=== PATIENT | male | born 1965 | race Caucasian/White ===

== ENCOUNTER 2017-10-23 13:54 | Emergency (ER) | payer OTHER ==
[~2017-10-23] VITALS: Ht 182.9 cm; Wt 108.9 kg
[~2017-10-23 13:54] MED LIST: DESO.05TL TP; DOCU100 PO; Ddavp0.1 MG PO; FAMO20 PO; FENO160; FLAX PO; HYDMETSO; HYDR1TAB94 PO; PRAHYD1AE TOP; Tylenol325 MG PO; VENL75ER PO; WARF2; WARF3; [UNRECOGNIZED DRUG - CODE]
[2017-10-23] MEDS ORDERED: LIOT25 PO (15:12)
[2017-10-23] MEDS ORDERED: CHOL10002 PO (15:14)
[2017-10-23] MEDS ORDERED: LORA1 PO (15:14)
[2017-10-23] MEDS ORDERED: XARELTO20 MG PO (15:16)
[2017-10-23] MEDS ORDERED: ULTRA-LIGHT RO1 EACH MC (16:56)
[2017-10-23] MEDS ORDERED: Percocet 5-3251 EACH PO (16:57)
== END 2017-10-23 17:04 | disposition home or self-care (01) ==
LOC: ER 13:54
DX: S70.01XA Contusion of right hip, initial encounter (principal); M54.5 Low back pain; K21.9 Gastro-esophageal reflux disease without esophagitis; F32.9 Major depressive disorder, single episode, unspecified; W18.2XXA Fall in (into) shower or empty bathtub, initial encounter; Z88.8 Allergy status to other drugs, medicaments and biological substances; Z79.899 Other long term (current) drug therapy
CPT/HCPCS: 72070; 72100; 73502; 99283

== ENCOUNTER 2017-10-27 06:08 | Emergency (ER) | payer OTHER ==
[~2017-10-27] VITALS: Ht 182.9 cm; Wt 108.9 kg
[~2017-10-27 06:08] MED LIST changes: +CHOL10002 PO; +LIOT25 PO; +LORA1 PO; +Percocet 5-3251 EACH PO; +ULTRA-LIGHT RO1 EACH MC; +XARELTO20 MG PO
== END 2017-10-27 09:00 | disposition home or self-care (01) ==
LOC: ER 06:08
DX: S50.02XA Contusion of left elbow, initial encounter (principal); W06.XXXA Fall from bed, initial encounter; Z88.8 Allergy status to other drugs, medicaments and biological substances; Z79.899 Other long term (current) drug therapy
CPT/HCPCS: 73080; 73100; 99283

== ENCOUNTER 2018-07-17 15:48 | Observation (INO) | payer OTHER ==
[~2018-07-17] VITALS: Ht 180.3 cm; Wt 107.6 kg
[2018-07-17] MEDS ORDERED: Prozac20 MG (16:15)
[2018-07-17 16:24] LABS: BASOPHILS ABSOLUTE AUTO 0.03 K/mm3 (0.00-0.23); BASOPHILS PERCENT AUTO 0 % (0-2); EOSINOPHILS ABSOLUTE AUTO 0.29 K/mm3 (0.00-0.68); EOSINOPHILS PERCENT AUTO 3 % (0-6); Hematocrit 52.8 % (37.0-53.0); Hemoglobin 16.1 g/dL (13.5-17.5); IMMATURE GRAN ABSOLUTE AUTO 0.02 K/mm3 (0.00-0.10); IMMATURE GRAN PERCENT AUTO 0 % (0-1); LYMPHOCYTES PERCENT AUTO 37 % (21-46); MONOCYTES ABSOLUTE AUTO 0.86 K/mm3 (0.16-1.47); MONOCYTES PERCENT AUTO 10 % (4-13); Mean Corpuscular HGB Conc 30.5 g/dL (31.5-36.5); Mean Corpuscular Volume 95 fL (80-100); NEUTROPHILS ABSOLUTE AUTO 4.27 K/mm3 (1.96-9.15); NEUTROPHILS PERCENT AUTO 49 % (41-73); Platelet Count 179 K/mm3 (150-400); RDW Coefficient Variation 15.7 % (11.7-14.2); RDW Standard Deviation 55.4 fL (35.1-46.3); Red Blood Cell Count 5.55 M/mm3 (4.30-5.90); White Blood Cell Count 8.67 K/mm3 (4.00-11.30)
[2018-07-17 16:46] LABS: Alanine Aminotransfer (ALT/SGP 41 U/L (12-78); Albumin, Blood 3.4 g/dL (3.4-5.0); Albumin/Globulin Ratio 0.7 (0.8-1.8); Alk Phos 93 U/L (50-136); Anion Gap 7 mmol/L (6-16); Aspartate Aminotrans (AST/SGOT 27 U/L (12-37); Bilirubin, Total 0.1 mg/dL (0.1-1.0); Blood Urea Nitrogen 23 mg/dL (8-24); Bun/Creatinine Ratio 23.5 (12.0-20.0); CO2, Blood 27 mmol/L (21-32); Calcium, Blood 9.4 mg/dL (8.5-10.1); Chloride, Blood 117 mmol/L (98-108); Creatinine, Blood 0.98 mg/dL (0.60-1.20); Globulin, Blood 4.8 g/dL (2.2-4.0); Glomerular Filtration Rate >60 (60-); Glucose, Blood 114 mg/dL (70-99); Sodium, Blood 151 mmol/L (136-145); Total Protein, Blood 8.2 g/dL (6.4-8.2)
[2018-07-17 16:58] LABS: International Normalized Ratio 1.09; Prothrombin Time Results 11.2 Sec (9.7-11.5)
[2018-07-17 20:50] LABS: Anion Gap 5 mmol/L (6-16); Blood Urea Nitrogen 24 mg/dL (8-24); Bun/Creatinine Ratio 27.9 (12.0-20.0); CO2, Blood 30 mmol/L (21-32); Calcium, Blood 9.1 mg/dL (8.5-10.1); Chloride, Blood 116 mmol/L (98-108); Creatinine, Blood 0.86 mg/dL (0.60-1.20); Glomerular Filtration Rate >60 (60-); Glucose, Blood 100 mg/dL (70-99); Sodium, Blood 151 mmol/L (136-145)
[2018-07-18 06:36] LABS: Anion Gap 9 mmol/L (6-16); Blood Urea Nitrogen 21 mg/dL (8-24); Bun/Creatinine Ratio 25.2 (12.0-20.0); CO2, Blood 27 mmol/L (21-32); Calcium, Blood 8.5 mg/dL (8.5-10.1); Chloride, Blood 116 mmol/L (98-108); Creatinine, Blood 0.83 mg/dL (0.60-1.20); Glomerular Filtration Rate >60 (60-); Glucose, Blood 70 mg/dL (70-99); Potassium, Blood 4.5 mmol/L (3.5-5.5); Sodium, Blood 152 mmol/L (136-145)
[2018-07-18] MEDS ORDERED: Acetaminophen325 M1 PO (13:35)
== END 2018-07-18 14:33 | disposition home or self-care (01) ==
LOC: ER 15:48 → MEDS 15:49
PROVIDERS: Emergency Medicine; Internal Medicine
DX: R55 Syncope and collapse (principal); E23.2 Diabetes insipidus; E78.5 Hyperlipidemia, unspecified; Z87.820 Personal history of traumatic brain injury; Z87.891 Personal history of nicotine dependence; Z88.8 Allergy status to other drugs, medicaments and biological substances; Z79.899 Other long term (current) drug therapy
CPT/HCPCS: 36415; 70450; 80048; 80053; 85025; 85610; 87081; G0378; J7030; J7120

== ENCOUNTER 2019-01-14 07:48 | Inpatient (IN) | payer OTHER ==
[~2019-01-14] VITALS: Ht 177.8 cm; Wt 124.7 kg
[~2019-01-14 07:48] MED LIST changes: +Acetaminophen325 M1 PO; -FLAX PO; +Flax Oil1000 MG PO; +LORA.5 PO; -LORA1 PO; +Prozac20 MG PO
[2019-01-14] MEDS ORDERED: Omega 3 1,0001 EACH PO (08:19)
[2019-01-14] MEDS ORDERED: ATOR40TA PO (08:20)
[2019-01-14 10:38] LABS: BASOPHILS ABSOLUTE AUTO 0.02 K/mm3 (0.00-0.23); BASOPHILS PERCENT AUTO 0 % (0-2); EOSINOPHILS ABSOLUTE AUTO 0.04 K/mm3 (0.00-0.68); EOSINOPHILS PERCENT AUTO 0 % (0-6); Hematocrit 45.3 % (37.0-53.0); Hemoglobin 14.8 g/dL (13.5-17.5); IMMATURE GRAN ABSOLUTE AUTO 0.06 K/mm3 (0.00-0.10); IMMATURE GRAN PERCENT AUTO 1 % (0-1); LYMPHOCYTES ABSOLUTE AUTO 0.87 K/mm3 (0.84-5.20); LYMPHOCYTES PERCENT AUTO 9 % (21-46); MONOCYTES PERCENT AUTO 8 % (4-13); Mean Corpuscular HGB 28.8 pg (26.0-34.0); Mean Corpuscular HGB Conc 32.7 g/dL (31.5-36.5); Mean Corpuscular Volume 88 fL (80-100); Mean Platelet Volume 10.5 fL (9.1-12.4); NEUTROPHILS ABSOLUTE AUTO 7.79 K/mm3 (1.96-9.15); NEUTROPHILS PERCENT AUTO 81 % (41-73); Platelet Count 144 K/mm3 (150-400); RDW Coefficient Variation 14.6 % (11.7-14.2); RDW Standard Deviation 46.4 fL (35.1-46.3); Red Blood Cell Count 5.13 M/mm3 (4.30-5.90); White Blood Cell Count 9.58 K/mm3 (4.00-11.30)
[2019-01-14 10:56] LABS: International Normalized Ratio 1.19; Prothrombin Time Results 12.4 Sec (9.7-11.5)
[2019-01-14 11:03] LABS: Alanine Aminotransfer (ALT/SGP 72 U/L (12-78); Albumin, Blood 3.5 g/dL (3.4-5.0); Albumin/Globulin Ratio 0.9 (0.8-1.8); Alk Phos 101 U/L (50-136); Anion Gap 6 mmol/L (6-16); Aspartate Aminotrans (AST/SGOT 54 U/L (12-37); Bilirubin, Total 0.5 mg/dL (0.1-1.0); Blood Urea Nitrogen 13 mg/dL (8-24); CO2, Blood 26 mmol/L (21-32); Calcium, Blood 8.7 mg/dL (8.5-10.1); Chloride, Blood 100 mmol/L (98-108); Creatinine, Blood 0.65 mg/dL (0.60-1.20); Globulin, Blood 4.1 g/dL (2.2-4.0); Glomerular Filtration Rate >60 (60-); Glucose, Blood 98 mg/dL (70-99); Potassium, Blood 4.7 mmol/L (3.5-5.5); Sodium, Blood 132 mmol/L (136-145); Total Protein, Blood 7.6 g/dL (6.4-8.2)
--- NOTE | 2019-01-14 12:40 | NUR ---
PT TO ROOM 208 VIA GURNEY FROM ER.
--- NOTE | 2019-01-14 13:15 | NUR ---
DR CASTRO AWARE OF NEW PT ADMIT. ORDERS FOR FENTANYL RECEIVED.
--- NOTE | 2019-01-14 13:53 | NUR ---
PT MEDICATED WITH 25MCG FENTANYL IV FOR PAIN. PT RESTING IN POSITION OF COMFORT. PT HAS OCCASIONAL SPASM. MULT FAMILY AT BEDSIDE.
--- NOTE | 2019-01-14 14:45 | NUR ---
DR CASTRO TO ROOM FOR EVAL AND ADMIT ORDERS.
[2019-01-14] MEDS ORDERED: Desmopressin A0.1 MG PO (15:19)
[2019-01-14] MEDS ORDERED: LORA1 PO (15:21)
--- NOTE | 2019-01-14 19:14 | NUR ---
PT MEDICATED WITH 2 NORCO PO. PT ATE 100% DINNER.
--- NOTE | 2019-01-15 04:33 | NUR ---
PT VSS T/O NIGHT. PAIN MGD W/2 NORCO W/REP RELIEF. PT SLOW TO RESPOND PER BASLINE, IS ABLE TO MAKE NEEDS KNOWN. PT SWALLOWS MEDS W/O DIFFICULTY. SISTER PRESENT IN ROOM T/O NIGHT, ASSISTING W/NEEDS. PLAN FOR SURGERY FRIDAY. CALL LIGHT IN REACH, BED ALARM ON FOR SAFETY. WILL CONT TO MONITOR UNTIL REP GIVEN TO ONCOMING RN.
[2019-01-15 04:42] LABS: BASOPHILS ABSOLUTE AUTO 0.02 K/mm3 (0.00-0.23); BASOPHILS PERCENT AUTO 0 % (0-2); EOSINOPHILS ABSOLUTE AUTO 0.14 K/mm3 (0.00-0.68); EOSINOPHILS PERCENT AUTO 2 % (0-6); Hemoglobin 14.3 g/dL (13.5-17.5); IMMATURE GRAN ABSOLUTE AUTO 0.02 K/mm3 (0.00-0.10); IMMATURE GRAN PERCENT AUTO 0 % (0-1); LYMPHOCYTES PERCENT AUTO 19 % (21-46); MONOCYTES ABSOLUTE AUTO 0.65 K/mm3 (0.16-1.47); MONOCYTES PERCENT AUTO 10 % (4-13); Mean Corpuscular HGB 28.9 pg (26.0-34.0); Mean Corpuscular HGB Conc 31.8 g/dL (31.5-36.5); Mean Platelet Volume 9.8 fL (9.1-12.4); NEUTROPHILS ABSOLUTE AUTO 4.59 K/mm3 (1.96-9.15); NEUTROPHILS PERCENT AUTO 68 % (41-73); Platelet Count 115 K/mm3 (150-400); RDW Coefficient Variation 14.6 % (11.7-14.2); RDW Standard Deviation 49.1 fL (35.1-46.3); Red Blood Cell Count 4.95 M/mm3 (4.30-5.90); White Blood Cell Count 6.72 K/mm3 (4.00-11.30)
[2019-01-15 04:48] LABS: Mean Corpuscular Volume 91 fL (80-100)
[2019-01-15 05:01] LABS: Anion Gap 6 mmol/L (6-16); Blood Urea Nitrogen 13 mg/dL (8-24); Bun/Creatinine Ratio 19.2 (12.0-20.0); CO2, Blood 26 mmol/L (21-32); Calcium, Blood 8.7 mg/dL (8.5-10.1); Chloride, Blood 99 mmol/L (98-108); Creatinine, Blood 0.68 mg/dL (0.60-1.20); Glomerular Filtration Rate >60 (60-); Glucose, Blood 94 mg/dL (70-99); Potassium, Blood 4.1 mmol/L (3.5-5.5); Sodium, Blood 131 mmol/L (136-145)
--- NOTE | 2019-01-16 08:01 | NUR ---
SHIFT SUMMARY PT ALERT, ORIENTED TO SELF AND PATTERN TECHNICIAN T/O SHIFT. PAIN MANAGED PER EMAR. EXT COOL X4. ATTENDS CHANGED PRN; PT INCONT. 2-3 ASSIST FOR TURNS. 2L O2 VIA NC; CONT. OX IN PLACE. IV GTT PER EMAR. PT NPO POST MIDNIGHT. PT OCC AGGITATED, ORIENTED BY PATTERN TECHNICIAN, PT CALMED READILY. SCD'S TO BLE'S, PT DID NOT TOLERATE ON LLE. PATTERN TECHNICIAN AT BEDSIDE; SIDE RAILS X3 AND BED ALARM FOR SAFETY. REPORT GIVEN TO DAY SHIFT RN.
--- NOTE | 2019-01-16 08:15 | NUR ---
PT TO DAY SURG VIA BED WITH POSTMASTER AND BRIDGE INSTRUCTOR RADHA. PT'S POA (MOTHER AND FATHER) SPEAKING WITH IN [place] FOR SURGICAL CONSENT.
--- NOTE | 2019-01-16 12:22 | NUR ---
DID NOT MOVE FEET WHEN ASKED BUT DID HAVE RESPONSE OF MOVEMENT WHEN RAN MY FINGER UP SOLE OF FOOT.
--- NOTE | 2019-01-16 16:09 | NUR ---
SHIFT SUMMARY: POD#0 BULKY DRESSING TO L HIP. DRESSING IS C/D/I. PT IS ABLE TO FOLLOW BASIC INSTRUCTIONS. TOLERATING PO INTAKE. DENIES ANY PAIN POST OP. HE IS HAVING VISUAL HALLUCINATIONS, PHYSICAL THERAPY WILL WORK WITH PT TOMORROW INSTEAD OF THIS AFTERNOON PER CARE PROVIDER REQUEST. HIS IS ON 4L O2 VIA NC TO MAINTAIN SATS >90% WILL WEAN APPROP. CONT PULSE OX IN PLACE. DENIES SOB. BILAT SCD'S IN PLACE. ICE PACK TO L HIP. OCASIO IS PATENT AND DRAINING. WILL CTM UNTIL REPORT GIVEN TO NEXT SHIFT RN.
[2019-01-17 06:01] LABS: BASOPHILS PERCENT AUTO 0 % (0-2); EOSINOPHILS ABSOLUTE AUTO 0.01 K/mm3 (0.00-0.68); EOSINOPHILS PERCENT AUTO 0 % (0-6); Hematocrit 37.8 % (37.0-53.0); Hemoglobin 12.1 g/dL (13.5-17.5); IMMATURE GRAN ABSOLUTE AUTO 0.05 K/mm3 (0.00-0.10); IMMATURE GRAN PERCENT AUTO 1 % (0-1); LYMPHOCYTES ABSOLUTE AUTO 1.06 K/mm3 (0.84-5.20); LYMPHOCYTES PERCENT AUTO 10 % (21-46); MONOCYTES PERCENT AUTO 12 % (4-13); Mean Corpuscular HGB 29.3 pg (26.0-34.0); Mean Corpuscular Volume 92 fL (80-100); Mean Platelet Volume 10.1 fL (9.1-12.4); NEUTROPHILS ABSOLUTE AUTO 7.97 K/mm3 (1.96-9.15); NEUTROPHILS PERCENT AUTO 77 % (41-73); Platelet Count 130 K/mm3 (150-400); RDW Coefficient Variation 14.9 % (11.7-14.2); RDW Standard Deviation 50.3 fL (35.1-46.3); Red Blood Cell Count 4.13 M/mm3 (4.30-5.90); White Blood Cell Count 10.29 K/mm3 (4.00-11.30)
[2019-01-17 06:17] LABS: Anion Gap 3 mmol/L (6-16); Blood Urea Nitrogen 13 mg/dL (8-24); Bun/Creatinine Ratio 19.3 (12.0-20.0); CO2, Blood 32 mmol/L (21-32); Calcium, Blood 8.7 mg/dL (8.5-10.1); Chloride, Blood 95 mmol/L (98-108); Creatinine, Blood 0.68 mg/dL (0.60-1.20); Glomerular Filtration Rate >60 (60-); Glucose, Blood 115 mg/dL (70-99); Magnesium, Blood 1.7 mg/dL (1.6-2.4); Potassium, Blood 4.7 mmol/L (3.5-5.5); Sodium, Blood 130 mmol/L (136-145)
--- NOTE | 2019-01-17 07:58 | NUR ---
SHIFT SUMMARY PT ALERT, ORIENTED TO SELF AND ROAD GANG SUPERVISOR; USUALLY FOLLOWS SIMPLE DIRECTIONS. PT AGGRIVATION NOTED WITH MUCH STIMULATION. POD#1 L HIP ALANA-ARTHROPLASTY; DRESSING CDI; EXT PWD; PAIN MANAGED PER EMAR. WEANED TO 2L O2 VIA NC; CONT. OXIMITRY IN PLACE. CATHETER PATENT, STAT-LOCK IN PLACE. PT DOES NOT TURN WELL; 3 MAX ASSIST. SCD'S TO BLE'S. ROAD GANG SUPERVISOR AT BEDSIDE. REPORT GIVEN TO DAY SHIFT RN.
--- NOTE | 2019-01-17 19:27 | NUR ---
SHIFT SUMMARY: PT BEEN UP IN CHAIR MOST OF DAY AFTER WORKING WITH THERAPY THIS MORNING. PT/CAREGIVER BEEN ASSISTED WITH ADL'S PRN. PT BEEN MED FOR PAIN. PT HAS OCASIO IN PLACE. PT BEEN BACK TO BED RECENTLY WITH MULT ASSIST. CAREGIVER IN ROOM. FAMILY IN TO SEE PT TODAY. PT DRESSING TO L HIP CONT TO BE C/D/I. PAS IN PLACE.
--- NOTE | 2019-01-18 07:31 | NUR ---
SHIFT SUMMARY PT A&O TO SELF AND CAREGIVER. SLOW RESPONSE, ABLE TO RESPOND TO SIMPLE QUESTIONS. POD#2 L HIP ALANA-ARTHROPLASTY. PT BED MOBILITY INCREASED FROM PRIOR TILE GRINDER. ICE TO L HIP PRN. PAIN MANAGED PER EMAR. HOB ELEVATED AND PILLS WITH APPLESAUCE. RA; DENIES SOB; VSS. APPROX. 0430 PT PULLED OCASIO CATHETER, BALLOON INTACT; NO TRAUMA/ACTIVE BLEEDING NOTED TO PENIS. PT VOIDED REPEATLY DURING BEDCHANGE/SPONGE BATH. CONDOM CATHETER APPLIED TO PROTECT PT SKIN AND SURGICAL INCISION. PT DRESSING TO L HIP SATURATED WITH URINE; CIRCUIT COURT JUDGE, EVERT, REMOVED DRESSING CLEANED SITE AND APPLIED AQUCEL DRESSING. DRESSING CDI AT SHIFT CHANGE. PT TOLERATING REPOSITIONING/LINEN CHANGE BETTER THAN PRIOR NIGHT. SCD'S TO BLE'S. BOWEL CARE PER EMAR. BED ALARM AND SIDE RAILS X3 FOR SAFETY. CAREGIVER AT BEDSIDE. REPORT GIVEN TO DAY SHIFT RN.
[2019-01-18 08:24] LABS: Anion Gap 5 mmol/L (6-16); Blood Urea Nitrogen 17 mg/dL (8-24); Bun/Creatinine Ratio 23.2 (12.0-20.0); CO2, Blood 31 mmol/L (21-32); Calcium, Blood 9.8 mg/dL (8.5-10.1); Chloride, Blood 107 mmol/L (98-108); Creatinine, Blood 0.73 mg/dL (0.60-1.20); Glomerular Filtration Rate >60 (60-); Glucose, Blood 90 mg/dL (70-99); Potassium, Blood 4.8 mmol/L (3.5-5.5); Sodium, Blood 143 mmol/L (136-145)
--- NOTE | 2019-01-18 11:07 | NUR ---
PT CALLING OUT AND APPEARS AGGITATED AT THIS TIME. PT'S CAREGIVER REPORTS HE GETS ATIVAN TID. PT'S CAREGIVER REPORTS THAT THE PATIENT MAY BECOME VIOLENT IF AGGITATION PERSISTS. DR. LABOY WAS NOTIFIED OF AGGITATION AND PT HOME ROUTINE. PT IS CONFUSED AT THIS TIME HE WOULD NOT ANSWER QUESTIONS RELATED TO PAIN. PT DOES NOT APPEAR TO BE IN PAIN, EVEN WHEN REPOSITIONED HE DID NOT CALL OUT OR COMPLAIN OF PAIN. DR. LABOY STATED SHE WOULD REVIEW HOME DOSE, AWAITING ORDERS. WILL CONTINUE TO MONITOR.
--- NOTE | 2019-01-18 11:29 | NUR ---
DR. LABOY NOTIFIED THAT PT WAS ASSESSED FOR PAIN AND DID NOT APPEAR TO BE IN PAIN. ALSO NOTIFIED THAT PT IS BECOMING MORE AGGITATED AND AGRESSIVE.
--- NOTE | 2019-01-18 18:19 | NUR ---
SHIFT SUMMARY PAIN HAS BEEN MANAGED WITH PO PAIN MEDICATION THIS SHIFT. PT BECAME AGGITATED AROUND NOON, ATIVAN DOSE WAS INCREASED. PT FOLLOWS DIRECTIONS BUT BECOMES FRUSTRATED AND YELLS. PT IS ORIENTED TO SELF AND FOLLOWING DIRECTIONS. HE WAS ABLE TO GET OOB WITH 2 ASSIST REQUIRED CONSTANT COACHING. VSS. WILL MONITOR UNTIL REPORT TO ONCOMING RN.
--- NOTE | 2019-01-18 19:46 | NUR ---
SHIFT SUMMARY PAIN HAS BEEN MANAGED WITH PO PAIN MEDICATION THIS SHIFT. PT HAS BEEN AGGITATED ESPECIALLY WHEN WORKING WITH STAFF. HE FOLLOWS DIRECTIONS BUT BECOMES VERY FRUSTRATED. PT IS A 2 PERSON MAX WHEN OOB. CAREGIVER AT BEDSIDE. REPORT GIVEN TO MYLA KAMINSKI.
--- NOTE | 2019-01-18 22:01 | NUR ---
WENT TO DO MY NIGHTLY VITALS AND I WAS TRYING TO GET VITALS/BLOOD PRESSURE ON PT HE TRIED TO HIT ME AND WAS CURSING AT ME. I ASKED THE PT TO PLEASE NOT HIT OR SWEAR AT ME. GRUPO WAS IN THR ROOM AND I MADE SURE TO EXPLAIN EVERYTHING I WAS DOING AND GIVE THE PT PLENTY OF TIME TO RESPOND BEFORE DOING ANYTHING TO PT. PT RIPPED OFF BLOOD PRESSURE CUFF AND WAS NOT HAPPY
--- NOTE | 2019-01-19 01:40 | NUR ---
CALLED TO DR VOSS PT INCREASING IN HALLUCINATIONS AND COMBATIVE.HITTING AT STAFF GRABBING WRISTS AND FINGERS OF STAFF AND TWISTING REQUIRING OTHER STAFF TO PRY HIS FINGERS AWAY. 3 TOTAL STAFF IN ROOM AND UNABLE TO FULLY TURN PT OR FULLY CHANGE ATTENDS. WERE ABLE TO REMOVE SOILED ATTEND AND PLACE OPEN CLEAN ATTEND UNDER PT BUT WERE NOT ABLE TO CLOSE ATTEND. HOME DOSES OF ATIVAN NOTED TO BE CHANGED. DISCUSSED THIS WITH DR VOSS. ATIVAN 1 MG PO ORDERED.
--- NOTE | 2019-01-19 04:14 | NUR ---
2 SECURITY STAFF AND 3 RNS AT BEDSIDE SECURITY HOLDING PT HANDS WHILE NURSING STAFF CHANGED LINENS AND ATTENDS AND REPOSITIONED PT UP IN BED. ALSO TOOK PAS PUMPS OFF FOR SKIN CK AND BACK ON.
--- NOTE | 2019-01-19 08:23 | NUR ---
01/19/19 0823 Nehal Richardson VERIFICATIONS: EDIT CHART.
--- NOTE | 2019-01-19 15:37 | NUR ---
PT'S CAREGIVER WAS COACHED TO ENCOURAGED PT TO COUGHT AND DEEP BREATHE HOURLY. PT IS UNABLE TO FOLLOW DIRECTIONS TO USE AN IS OR FLUTTER VALVE.
--- NOTE | 2019-01-19 15:53 | NUR ---
PT WAS PLACED ON 2L O2 VIA NC TO INCREASE O2 SATURATION. PT'S O2 SATURATION WAS 85% WITHOUT O2. AFTER BEING PLACE ON 2L O2 ENCOURAGING COUGHING AND DEEP BREATHING O2 SATURATIONS INCREASED TO 94%. CAREGIVER EDUCATION WAS GIVEN TO CONTINUE COACHING PT TO COUGH AND DEEP BREATHE.
--- NOTE | 2019-01-19 16:54 | NUR ---
PT TRANSPORTED TO [facility] AT THIS TIME.
--- NOTE | 2019-01-19 17:21 | NUR ---
SHIFT SUMMARY PT HAS REMAINED CALM THIS SHIFT, ATIVAN RESUMED PER HOME ROUTINE. PT HAS BEEN AGGITATED WITH NURSING CARE BUT IS REDIRECTABLE. PT IS PAINFUL WITH MOVEMENT; NORCO X1 FOR PAIN. CAREGIVER HAS BEEN AT THE BEDSIDE. PT WAS UNABLE TO PARTICIPATE WITH THERAPY R/T DROWSINESS. CAREGIVER REPORTS THAT PT REMAINS DROWSY AND SLEEPS MOSTLY DURING THE DAY. PT WAS PLACED ON O2 THIS AFTERNOON FOR DECREASED O2 SATURATION, CHEST XRAY DONE. VSS. WILL CONTINUE TO MONITOR UNTIL REPORT TO ONCOMING RN.
--- NOTE | 2019-01-20 01:20 | NUR ---
CONTACTED RESPIRATORY THERAPRY AFTER BEING UNABLE TO BRING PT'S O2 SAT BACK TO BASELINE OF 92% AFTER REPOSITIONING O2 AND INCREASING IT TO 4L/NC. GOOD WAVEFORM NOTED ON BIOX. WILL CONTINUE TO MONITOR.
--- NOTE | 2019-01-20 03:52 | NUR ---
PT HAD APNEA EPISODE WHERE BIOX SHOWED O2 SAT OF 67% ON O2 WITH GOOD WAVEFORM NOTED. NURSING SPOKE TO PT AND RUBBED ON CHEST WALL TO STIMULATE HIM. PLACEMENT OF O2 SAT PROBE CHANGED TO LEFT INDEX FNGER. WITH PT WAKING UP AND TAKING GOOD DEEP BREATHS HIS O2 SAT ASUNCION TO 92%. SAFETY MEASURES IN PLACE. WILL CONTINUE TO MONITOR.
--- NOTE | 2019-01-20 06:35 | NUR ---
LYING IN SEMI FOWLERS WITH EYES CLOSED. HAS SPIKED A LOW GRADE FEVER TWICE TIMES THIS SHIFT. HAS BEEN MEDICATED FOR PAIN TO LEFT HIP/BACK, AND FEVER X2. COOL WASHCLOTH HAS BEEN PLACED TO FOREHEAD FOR COMFORT WELL. REPOSITIONED AND OFFLOADED FOR COMFORT. SITTER DENEIS FURTHER NEEDS AT THIS TIME. SAFETY MEASURES IN PLACE. WILL GIVE HAND OFF TO ONCOMING SHIFT USING SBAR,
--- NOTE | 2019-01-20 07:51 | NUR ---
DR LABOY HERE, DISCUSSED PT'S STATUS. REPORTS TO SEND PT TO PCU. C.C. AND STREET ROLLER ENGINEER AWARE. PT RESTING QUIETLY AT THIS TIME. PT NOW ON 6LO2NC IN MOUTH PT IS BEING AN MOUTH BREATHER AT THIS TIME. CAREGIVER IN ROOM.
--- NOTE | 2019-01-20 08:37 | NUR ---
REPORT GIVEN TO OIL TANKER CAPTAIN PT TO BE TRANSFERRED TO PCU.
[2019-01-20 09:00] LABS: BASOPHILS ABSOLUTE AUTO 0.04 K/mm3 (0.00-0.23); BASOPHILS PERCENT AUTO 0 % (0-2); EOSINOPHILS ABSOLUTE AUTO 0.05 K/mm3 (0.00-0.68); EOSINOPHILS PERCENT AUTO 1 % (0-6); Hematocrit 49.3 % (37.0-53.0); Hemoglobin 14.7 g/dL (13.5-17.5); IMMATURE GRAN ABSOLUTE AUTO 0.07 K/mm3 (0.00-0.10); IMMATURE GRAN PERCENT AUTO 1 % (0-1); LYMPHOCYTES ABSOLUTE AUTO 2.79 K/mm3 (0.84-5.20); LYMPHOCYTES PERCENT AUTO 27 % (21-46); MONOCYTES ABSOLUTE AUTO 1.91 K/mm3 (0.16-1.47); MONOCYTES PERCENT AUTO 18 % (4-13); Mean Corpuscular HGB 28.2 pg (26.0-34.0); Mean Corpuscular HGB Conc 29.8 g/dL (31.5-36.5); Mean Platelet Volume 9.4 fL (9.1-12.4); NEUTROPHILS ABSOLUTE AUTO 5.55 K/mm3 (1.96-9.15); NEUTROPHILS PERCENT AUTO 53 % (41-73); NRBC ABSOLUTE 0.08 K/mm3 (0.00-0.02); NRBC Auto 0.8 /100 WBC (0.0-0.2); Platelet Count 262 K/mm3 (150-400); RDW Coefficient Variation 15.9 % (11.7-14.2); RDW Standard Deviation 54.8 fL (35.1-46.3); Red Blood Cell Count 5.21 M/mm3 (4.30-5.90); White Blood Cell Count 10.41 K/mm3 (4.00-11.30)
[2019-01-20 09:03] LABS: Mean Corpuscular Volume 95 fL (80-100)
--- NOTE | 2019-01-20 09:05 | NUR ---
PT RECENTLY MOVED TO PCU 8. RN BEEN GIVEN REPORT. PT TRANSFERRED WITH MULT ASSIST. PT WAS ON 6LO2NC DURING TRANSPORT. BELONGINGS AND MEDICATIONS SENT WITH PT.
[2019-01-20 09:12] LABS: Albumin, Blood 3.2 g/dL (3.4-5.0); Anion Gap 3 mmol/L (6-16); Blood Urea Nitrogen 24 mg/dL (8-24); Bun/Creatinine Ratio 19.8 (12.0-20.0); CO2, Blood 35 mmol/L (21-32); Calcium, Blood 9.5 mg/dL (8.5-10.1); Chloride, Blood 115 mmol/L (98-108); Creatinine, Blood 1.21 mg/dL (0.60-1.20); Glomerular Filtration Rate >60 (60-); Glucose, Blood 116 mg/dL (70-99); Phosphorus, Blood 3.7 mg/dL (2.5-4.9); Potassium, Blood 3.9 mmol/L (3.5-5.5); Sodium, Blood 153 mmol/L (136-145)
--- NOTE | 2019-01-20 12:00 | NUR ---
TRANSFER- PT ARRIVED TO ROOM PCU 8 VIA BED FROM [facility] AT 0900. PT WITH EYES OPEN BUT DID NOT VERBALLY RESPOND. CAREGIVER AT BEDSIDE AND REPORTS PT COMPLETELY BLIND ON RIGHT SIDE AND POOR VISION TO LEFT. PT FOLLOWS DIRECTIONS. NO APPARENT DISCOMFORT AT REST BUT NOTED PAIN TO LEFT HIP WITH MOVEMENT. LS CLEAR/ DIMINISHED. ON 6L HIGH FLOW 02. PT WITH WEAKNESS TO BUE AND BLE. HRR. AQUACEL DRESSING IN PLACE TO LEFT HIP, SMALL AMOUNT OF DRAINAGE NOTED. PT INCONT OF URINE. BY APROX 1115 PT MORE ALERT AND WOULD TALK SMALL SENTENCES WITH STAFF. PT ABLE TO TAKE MEDICATIONS ORALLY WITHOUT DIFFICULTY ONE AT A TIME WITH APPLESAUCE. PT AND CAREGIVER ORIENTED TO ROOM AND CALL SYSTEM.
--- NOTE | 2019-01-20 17:28 | NUR ---
SHIFT SUMMARY- PT A SUGICAL FLOOR TRANSFER THIS AM. PT SOMNOLENT AT ARRIVAL TO PCU, EYES OPEN BUT DID NOT RESPOND VERBALLY. PT NOW AWAKE AND TALKING WITH CAREGIVER AND STAFF MEMBERS. PT WITH HX OF TBI, DIFFICULT TO UNDERSTAND, POOR VISION. PT A/O TO PERSON AND FAMILY. PT CAN BE IRRITABLE BUS HAS BEEN COOPERATIVE WITH CARE. PT DENIES ANY PAIN AT REST, PAIN NOTED TO LEFT HIP WITH MOVEMENT. AQUACEL DRESSING IN PLACE TO LEFT HIP, C/D/I. LS DIMINISHED, ON 7L HIGH FLOW, PT IS A MOUTH BREATHER AND HAS BEEN IN HIS MOUTH. OCC NPC NOTED. PT IS INCONT OF URINE, ATTENDS IN PLACE. MEPILEX TO COCCYX, HEAL PROTECTORS IN PLACE. NO BM SINCE ADMIT, COLACE AND MOM GIVEN, PT IS PASSING GAS. TELE SR WITH PVC'S AT 95. NO OTHER ACUTE CHANGES THIS SHIFT.
--- NOTE | 2019-01-20 17:37 | NUR ---
PT REFUSED ABG. DR LABOY NOTIFIED AND REQUESTED TO TRY A VBG TO CHECK C02 LEVEL. ORDER PLACED FOR VBG.
[2019-01-20 18:24] LABS: Base Excess Venous 8.2 mmol/L; Bicarbonate Venous 30.7 mmol/L (24.0-30.0); PCO2 Venous 45.3 mmHg (38-42); PO2 Venous 72.1 mmHg (38-42); pH Blood Venous 7.46 (7.34-7.37)
--- NOTE | 2019-01-20 18:43 | NUR ---
DR COELLO IN TO SEE PT.
--- NOTE | 2019-01-20 19:04 | NUR ---
DR COELLO NOTIFIED OF SODIUM LEVEL. PER START D5W AT 50ML/HR.
--- NOTE | 2019-01-21 05:36 | NUR ---
SHIFT SUMMARY PT ALERT AND ORIENTED AT TIMES THROUGHOUT THE SHIFT. HE HAD MOMENTS OF AGGRAVATION AND SOME MINOR ISSUES WITH COMBATIVE BEHAVIOUR. PT WAS ABLE TO REDIREECTED BY CAREGIVER AND BY BEING GIVEN SOME SPACE BY STAFF. PT DID TOLERATE TURNS AND CHANGES FOLLOWING ADMINISTRATION OF ORDERED ANTI ANXIETY MEDICATION. PT GOT SOME SLEEP DURING THE SHIFT AND WAS ABLE, WITH CAREGIVER ASSISTANCE, TO MAKE NEEDS KNWON. HE WAS CONTINENT AT TIMES, BUT DID HAVE SOME NEED TO BE CHANGED WELL. PT VITALS WERE STABLE T/O SHIFT AND HE DENIED ANY UNMET NEEDS. HE HAD SOME PAIN AT HIS IV SITE AT ONE POINT. IV WAS REMOVED AND A NEW ONE WAS PLACED. PT REMOVED HIS OWN DRESSING AT HIP FX REPAIR SITE. NEW DRESSING WAS APPLIED AND SITE LOOKED GOOD. PT WILL CONTINUE TO BE MONITORED UNTIL HANDOFF TO DAYSHIFT RN.
[2019-01-21 06:10] LABS: BASOPHILS ABSOLUTE AUTO 0.05 K/mm3 (0.00-0.23); BASOPHILS PERCENT AUTO 0 % (0-2); EOSINOPHILS ABSOLUTE AUTO 0.12 K/mm3 (0.00-0.68); EOSINOPHILS PERCENT AUTO 1 % (0-6); Hematocrit 46.7 % (37.0-53.0); Hemoglobin 14.1 g/dL (13.5-17.5); IMMATURE GRAN ABSOLUTE AUTO 0.07 K/mm3 (0.00-0.10); IMMATURE GRAN PERCENT AUTO 1 % (0-1); LYMPHOCYTES ABSOLUTE AUTO 3.04 K/mm3 (0.84-5.20); LYMPHOCYTES PERCENT AUTO 25 % (21-46); MONOCYTES PERCENT AUTO 12 % (4-13); Mean Corpuscular HGB Conc 30.2 g/dL (31.5-36.5); Mean Corpuscular Volume 96 fL (80-100); Mean Platelet Volume 9.2 fL (9.1-12.4); NEUTROPHILS ABSOLUTE AUTO 7.33 K/mm3 (1.96-9.15); NEUTROPHILS PERCENT AUTO 61 % (41-73); NRBC ABSOLUTE 0.03 K/mm3 (0.00-0.02); NRBC Auto 0.2 /100 WBC (0.0-0.2); Platelet Count 274 K/mm3 (150-400); RDW Coefficient Variation 15.6 % (11.7-14.2); RDW Standard Deviation 55.3 fL (35.1-46.3); Red Blood Cell Count 4.86 M/mm3 (4.30-5.90); White Blood Cell Count 12.11 K/mm3 (4.00-11.30)
[2019-01-21 06:44] LABS: Albumin, Blood 3.1 g/dL (3.4-5.0); Anion Gap 6 mmol/L (6-16); Blood Urea Nitrogen 25 mg/dL (8-24); Bun/Creatinine Ratio 21.9 (12.0-20.0); CO2, Blood 29 mmol/L (21-32); Calcium, Blood 9.2 mg/dL (8.5-10.1); Chloride, Blood 117 mmol/L (98-108); Creatinine, Blood 1.14 mg/dL (0.60-1.20); Glomerular Filtration Rate >60 (60-); Glucose, Blood 116 mg/dL (70-99); Magnesium, Blood 2.6 mg/dL (1.6-2.4); Phosphorus, Blood 3.6 mg/dL (2.5-4.9); Potassium, Blood 3.9 mmol/L (3.5-5.5); Sodium, Blood 152 mmol/L (136-145)
--- NOTE | 2019-01-21 08:00 | NUR ---
adult day care worker in room, pt laying in bed awake, he is partially blind, a bit agitated, arguing with adult day care worker, but did allow this nurse to assess. lungs are clear in upper muhammad, dim in bases, RT in room, turned o2 flow from 8 to 6 liters, sats remain above 90%. vs stable, hrr, tele in place running sr per monitor, see strip, +1 edema noted to b/l le, ppp +1, cap refill <3sec, vs stable, afebrile, iv site is clear and patent, btx4, abd flat soft nontender, voids in attends and urinal, skin has dressing in place to coccyx, heels for protection, and left hip to cover surgical wound. moves ext. needs lots of cueing to transfer. call light in reach.
--- NOTE | 2019-01-21 13:40 | NUR ---
PT BECAME MORE AGITATED, WAS STRIKING OUT, NURSE LEADER ASKED FOR ANOTHER DOSE OF ATIVAN, THIS WAS GIVEN. CALL LIGHT IN REACH.
--- NOTE | 2019-01-21 18:39 | NUR ---
PT GOT UP TO BSC WITH PT NO RESULTS. HE GOT PRETTY FATIGUED. HE HAS BEEN COOPERATIVE WITH CARE, AND TAKING HIS PO MEDS. VENEER SPLICER IN ROOM ALL DAY, CALL LIGHT IN REACH.
[2019-01-22 07:31] LABS: Hematocrit 46.1 % (37.0-53.0); Hemoglobin 14.3 g/dL (13.5-17.5); Mean Corpuscular HGB 28.5 pg (26.0-34.0); RDW Coefficient Variation 15.8 % (11.7-14.2); Red Blood Cell Count 5.02 M/mm3 (4.30-5.90); White Blood Cell Count 11.71 K/mm3 (4.00-11.30)
[2019-01-22 07:33] LABS: Albumin, Blood 3.1 g/dL (3.4-5.0); Anion Gap 7 mmol/L (6-16); Blood Urea Nitrogen 23 mg/dL (8-24); Bun/Creatinine Ratio 23.3 (12.0-20.0); CO2, Blood 28 mmol/L (21-32); Calcium, Blood 8.9 mg/dL (8.5-10.1); Chloride, Blood 114 mmol/L (98-108); Creatinine, Blood 0.99 mg/dL (0.60-1.20); Glomerular Filtration Rate >60 (60-); Glucose, Blood 94 mg/dL (70-99); Magnesium, Blood 2.5 mg/dL (1.6-2.4); Phosphorus, Blood 3.7 mg/dL (2.5-4.9); Potassium, Blood 4.7 mmol/L (3.5-5.5); Sodium, Blood 149 mmol/L (136-145)
[2019-01-22 08:02] LABS: Mean Corpuscular Volume 92 fL (80-100); Mean Platelet Volume 10.6 fL (9.1-12.4)
--- NOTE | 2019-01-22 18:15 | NUR ---
END OF SHIFT ASUMMARY PT HAS BEEN COOPERATIVE WITH CARE TODAY. PATIENT ALERT AND FOLLOWING DIRECTIONS. HAS AMBULATED TO [facility] VIA 2 PERSON ASSIST TWICE. SECOND ATTENPT FOLLOWING SUPPOSITORY PRODUCED SOLID MEDIUM BM. PT HAS BEEN MEDICATED WITH ATIVAN PER ORDERS AND HAVE ATTEMPTED TO STAY ON SCHEDULE PT RECEIVES AT HOME. PT IRRITABILE AT SOMEPOINTS IN SHIFT, ESPECIALLY R/T TURNING WITH AMBULATION BUT HAS BEEN CALM FOR MAJORITY OF SHIFT. VS HAVE BEEN STABLE ALL SHIFT. CAREGIVER AT BEDSIDE ALL SHIFT. PT TOLERATING 100% MEALS WITH CAREGIVER ASSISTANCE. DR COELLO HAS BEEN NOTIFIED OF NA LAB LEVELS, D5 INFUSION SLOWED TO 50MLS/HR. PT SEEN BY PHYSICAL THERAPY REGARDING AMBULATION. HIP SURGICAL SITE APPEARS DRY, NON INFLAMED, AND SHOWING NO ASINGS OF INFECTIN, REDRESSED TODAY WITH AQUACELL DRESSING. PT HAS DENIED PAIN EXCEPT FOR ONCE THIS SHIFT BUT PAIN RESOLVED VIA SHIFTING WEIGHT OFF OF HIP. WILL CONTINUE JOEL MONITOR PT UNTIL SHIFT CHANGE.
--- NOTE | 2019-01-22 19:45 | NUR ---
ASSUMED CARE PT SLEEPING IN ROOM COMFORTABLY AT THIS TIME. CAREGIVER AT BEDSIDE. PER DAY SHIFT PT HAD NO MAJOR CHANGES T/O DAY. PT WAS MEDICATED PER EMAR W/ ATIVAN FOR ANXIETY. PT HAD BOWEL MOVEMENT TODAY, SEE NOTES. PER DAY SHIFT PT HAS BEEN VERY SLEEPY TODAY. HAS DENIED PAIN AT SHIFT CHANGE. PER DAY SHIFT DRESSING WAS CHANGED ON L HIP WOUND FROM HIP SURGERY TODAY. SKIN C/D/I. MEPILEX TO COCCXY TO PREVENT BREAKDOWN. PILLOW PLACED UNDER L HIP FOR COMFORT, AND ONE BETWEEN LEGS TO PREVENT PT FROM CROSSING LEGS WHILE SLEEPING. CAREGIVER AT BEDISDE WITH CALL LIGHT.
[2019-01-23 04:21] LABS: Hematocrit 46.1 % (37.0-53.0); Hemoglobin 13.7 g/dL (13.5-17.5)
[2019-01-23 04:36] LABS: Albumin, Blood 3.1 g/dL (3.4-5.0); Anion Gap 3 mmol/L (6-16); Blood Urea Nitrogen 23 mg/dL (8-24); Bun/Creatinine Ratio 24.7 (12.0-20.0); CO2, Blood 32 mmol/L (21-32); Calcium, Blood 9.1 mg/dL (8.5-10.1); Chloride, Blood 110 mmol/L (98-108); Creatinine, Blood 0.93 mg/dL (0.60-1.20); Glomerular Filtration Rate >60 (60-); Glucose, Blood 113 mg/dL (70-99); Magnesium, Blood 2.4 mg/dL (1.6-2.4); Potassium, Blood 3.9 mmol/L (3.5-5.5); Sodium, Blood 145 mmol/L (136-145)
--- NOTE | 2019-01-23 05:25 | NUR ---
SHIFT SUMMARY PT SLEEPING IN ROOM COMFORTABLY. NO ACUTE CHANGES IN STATUS OVERNIGHT. PT SLEPT WELL T/O NIGHT NO AGGITATION NOTED. CAREGIVER SLEPT AT BEDSIDE W/ PT. DID NOT CALL FOR ANY PT NEEDS. PT WAS TURNED Q2 HOURS TO KEEP PRESSURE OF COCCYX. DEXTROSE 5% INFUSING IN PIV. RESP EVEN UNLBAORED ON 3L O2 VIA NC. SATS >92%. PT APPEARS TO BE SLEEPING COMFORTABLY W/ NOT OUTWARD SIGNS OF PAIN. CALL LIGHT IS IN REACH.
[2019-01-23] MEDS ORDERED: ACET325 PO (11:00)
[2019-01-23] MEDS ORDERED: Refresh Celluv1 EACH BOTHEYES (11:07)
[2019-01-23] MEDS ORDERED: GAVILAX17 GM PO (11:09)
[2019-01-23] MEDS ORDERED: LEVO750 PO (11:10)
[2019-01-23] MEDS ORDERED: ONDA4ODT MM (11:10)
--- NOTE | 2019-01-23 13:08 | NUR ---
PHYSICIAN NOTIFIED DR MCDONALD NOTIFIED WITH HOME SITUATION REGARDING BED. PT HAS HIP PRECAUTIONS AND BED AT HOME IS TOO LOW. RAISABLE HOSPITAL BED WILL BE AT PT'S HOUSE FRIDAY DUE TO INSURANCE REASONS.
--- NOTE | 2019-01-23 16:28 | NUR ---
END OF SHIFT SUMMARY ASSUMED CARE OF PT @0700 THIS SHIFT. PT RESTING IN BED ASLEEP WITH CAREGIVER AT BEDSIDE. PT ALERT TO STAFF AND FOLLOWING INSTRUCTIONS. VS STABLE T/O SHIFT, PT REMAINS MED STATUS NO TELE. PT'S NA LEVELS HAE TRENDED DOWN TO [address] COELLO DC'ING THE D5 INFUSION. PT HAS BEEN UP TO BSC AND CHAIR MULTIPLE TIMES THIS SHIFT WITHMAXIMAL STAFF ASSISTANCE. PHYSICAL THERAPY WITH PATIENT NOW @1700 WORKING WITH [facility] ON AMBULATION AND TRANSFERS WELL TEACHING CAREGIVERS THESE SKILLS. PT HAD DC ORDERS PLACED TODAY. PARENTS UNABLE TO TAKE PT HOME DUE TO NOT HAVING SUPPLIES FOR HOMECARE (IE BED FOR HIP PRECAUTIONS, HIS HOME BED IS EXTREMELY LOW TO GROUND) THESE SUPPLIES NOT AVAILABLE TO PT UNTIL FRIDAY. HOSPITALIST NOTIFIED OF THIS. WILL CONTINUE TO MONITOR PT UNTIL SHIFT CHANGE.
--- NOTE | 2019-01-23 18:06 | NUR ---
Assisted from the bedside commode, where he sat while eating dinner, back into the bed, high eduar's position.
--- NOTE | 2019-01-23 19:45 | NUR ---
ASSUMED CARE PT SLEEPING IN ROOM W/ CAREGIVER AT BEDISDE. WAKES EASILY TO VERBAL. PER DAY SHIFT PT WAS VERY ACTIVE TODAY W/ PT AND UP TO CHAIR AND BSC MULTIPLE TIMES. PT REPORTS VERY TIRED TONIGHT. DENIES ANY PAIN AT THIS TIME. PT ABLE TO ANSWER QUESTIONS WITH SHORT REPOSONSES AND APPEARS TO FALL ASLEEP QUICKY. RESP EVEN UNLBAORED ONR A W/ SATS >92%. AQUACEAL DRESSING IN PLACE AND C/D/I TO L HIP SURGICAL SITE. DRESSING WAS CHANGED TODAY PER DAY SHIFT. ATTENDS IN PLACE AND DRY. MEPILEX TO HEELS AND COCCYX IN PLACE FOR PREVENTATIVE. CAREGIVER AT BEDSIDE WILL REMAIN T/O NIGHT. PT TO BE TRANSFERED TO MEDICAL FLOOR. WILL GIVE REPORT TO RN WHEN RN BECOMES AVAILABLE.
--- NOTE | 2019-01-23 20:45 | NUR ---
TRANSFER REPORT GIVEN TO MED FLOOR RN. T BELONGINGS GATHERED AND SENT W/ CAREGIVER TO NEW ROOM. PT TRANSFERED VIA HOSP BED BY THIS RN AND SIDEROGRAPHER. NO BELONGINGS LEFT IN ROOM.
--- NOTE | 2019-01-24 04:59 | NUR ---
01/24/19 0500 AWAKENED FOR VITALS AND REPOSITIONING. INCONTINENT OF URINE AND SMEAR OF BROWN BM ON ATTENDS. ESTRELLITA-CARE GIVEN AND REPOSITIONED TO RT SIDE. C/O LEFT SURGICAL SITE DISCOMFORT. SEE MAR FOR MED GIVEN. TOOK MEDS WITH APPLESAUCE AND WATER. VITALS STABLE. CAREGIVER AT BEDSIDE ALL SHIFT.
[2019-01-24 05:33] LABS: Hematocrit 42.9 % (37.0-53.0)
[2019-01-24 05:56] LABS: Albumin, Blood 2.9 g/dL (3.4-5.0); Anion Gap 5 mmol/L (6-16); Blood Urea Nitrogen 23 mg/dL (8-24); Bun/Creatinine Ratio 27.3 (12.0-20.0); CO2, Blood 30 mmol/L (21-32); Calcium, Blood 8.7 mg/dL (8.5-10.1); Chloride, Blood 107 mmol/L (98-108); Creatinine, Blood 0.84 mg/dL (0.60-1.20); Glomerular Filtration Rate >60 (60-); Glucose, Blood 102 mg/dL (70-99); Magnesium, Blood 2.4 mg/dL (1.6-2.4); Potassium, Blood 3.7 mmol/L (3.5-5.5); Sodium, Blood 142 mmol/L (136-145)
--- NOTE | 2019-01-24 18:14 | NUR ---
PT IS AOX2 AND COOPERATIVE OF CARE. PT HAS BEEN A ONE PERSON TO BEDSIDE COMODE, BUT CAN BE HARD TO DIRECT.PT HAS HAD L HIP PAIN AND WAS TREATED PER EMAR. PT HAS CAREGIVER AT BEDSIDE. WILL CONTINUE MONITOR.
[2019-01-25 04:49] LABS: Hematocrit 40.1 % (37.0-53.0); Hemoglobin 12.4 g/dL (13.5-17.5)
[2019-01-25 05:10] LABS: Albumin, Blood 3.1 g/dL (3.4-5.0); Anion Gap 5 mmol/L (6-16); Blood Urea Nitrogen 20 mg/dL (8-24); Bun/Creatinine Ratio 19.6 (12.0-20.0); CO2, Blood 31 mmol/L (21-32); Calcium, Blood 8.8 mg/dL (8.5-10.1); Chloride, Blood 106 mmol/L (98-108); Creatinine, Blood 1.02 mg/dL (0.60-1.20); Glomerular Filtration Rate >60 (60-); Glucose, Blood 88 mg/dL (70-99); Magnesium, Blood 2.2 mg/dL (1.6-2.4); Phosphorus, Blood 2.8 mg/dL (2.5-4.9); Potassium, Blood 3.8 mmol/L (3.5-5.5); Sodium, Blood 142 mmol/L (136-145)
--- NOTE | 2019-01-25 07:40 | NUR ---
01/25/19 0630 AWAKENED FOR AM MED. ACCOUNTS PAYABLE MANAGER HERE ALL SHIFT. VITALS STABLE. PT CAN BECOME AGITATED AT TIMES REQUIRING ATIVAN DOSE. PLAN DISCHARGE TODAY.
--- NOTE | 2019-01-25 14:47 | NUR ---
AGITATION PATIENT BECOMES VERY AGITATED WHEN STAFF PERFORM CARE, TRANSFER PATIENT, OR ATTEMP TO PROMPT HIM. THE PATIENT GRABS AT STAFF AND HAS ATTEMPTED TO HIT STAFF. CALL TO DR. WATKINS, ORDERS GIVEN FOR PRN ZYPREXA.
--- NOTE | 2019-01-25 17:30 | NUR ---
SHIFT SUMMARY NO ACUTE CHANGES. PATIENT IS AWAITING DISCHARGE BUT CANNOT BE REALASED THE HOSPITAL BED AND EQUIPMENT HE NEEDS HAS NOT BEEN DELIVERED TO HIS HOME. THE PATIENT'S PARENTS ARE WORKING WITH THE INSURANCE COMPANY AND [employer] TO SOLVE THE PROBLEM. NEISHA WA VERY AGITATED TODAY AND BECAME AGGRESIVE WITH STAFF SEVERAL TIMES. NEW ORDER FOR ZYPREXA GIVEN, PATIENT NOW SLEEPING. PT UNABLE TO WORK WITHNEISHA TODAY DUE TO DROWSINESS IN THE MORNING AND AGITATION IN THE AFTERNOON. PATIENT UP TO BSC X 3 ASSIST. NO ACOMPLAINTS OF PAIN, NAUSEA, OR SHORTNESS OF BREATH. CALL LIGHT IN REACH, WILL CONTINUE TO MONITOR.
--- NOTE | 2019-01-25 23:11 | NUR ---
01/25/19 2310 TOO LETHARGIC TO TAKE ANY ORAL FLUIDS OR MEDS. PT HAD BEEN GIVEN RELAXANT DUE TO HIS EXTREME AGITATION ON DAY SHIFT. VITLAS ARE STABLE. REPOSITIONED TO RT SIDE. VOIDED IN URINAL 650 ML AFTER TURNED. SYSTEMS PROGRAMMER AT BEDSIDE ALL SHIFT.
[2019-01-26 04:57] LABS: Hematocrit 45.3 % (37.0-53.0); Hemoglobin 13.9 g/dL (13.5-17.5)
[2019-01-26 05:18] LABS: Albumin, Blood 3.2 g/dL (3.4-5.0); Anion Gap 4 mmol/L (6-16); Blood Urea Nitrogen 15 mg/dL (8-24); Bun/Creatinine Ratio 17.2 (12.0-20.0); CO2, Blood 30 mmol/L (21-32); Calcium, Blood 9.2 mg/dL (8.5-10.1); Chloride, Blood 113 mmol/L (98-108); Creatinine, Blood 0.87 mg/dL (0.60-1.20); Glomerular Filtration Rate >60 (60-); Glucose, Blood 97 mg/dL (70-99); Magnesium, Blood 2.7 mg/dL (1.6-2.4); Phosphorus, Blood 2.9 mg/dL (2.5-4.9); Potassium, Blood 4.2 mmol/L (3.5-5.5); Sodium, Blood 147 mmol/L (136-145)
--- NOTE | 2019-01-26 11:24 | NUR ---
RECEIVED REPORT AND ASSUMED CARE OF PATIENT. CAREGIVER STATES HE IS AT HIS BASELINE COGNITION LEVEL AT THIS TIME. PT ABLE TO COMMUNICATE, BUT DOES HAVE AMS AND SOME HALLUCINATIONS. PT ON ROOM AIR, VSS, CALL LIGHT WITHIN EASY REACH, CAREGIVER AT BEDSIDE.
--- NOTE | 2019-01-26 18:54 | NUR ---
PT HAD A GOOD DAY, HE WORKED WITH PT AND SAT UP IN THE CHAIR FOR PART OF THE DAY. PT AFFECT HAS BEEN PLEASANT, BUT OCCASIONALLY PT HAS TIMES OF IRRITATION AND DID BECOME COMBATIVE TOWARD THIS NURSE WELL THE HADOOP ADMIN. WILL CONTINUE TO MONITOR PATIENT AND GIVE REPORT TO NOC RN.
--- NOTE | 2019-01-27 03:59 | NUR ---
SHIFT SUMMARY PT SLEEPY THIS EVENING. SLEPT THROUGH MUCH OF THE NIGHT. WAS ABLE TO WAKE HIM TO TAKE HIS PILLS BUT PT QUICKLY FELL BACK ASLEEP. CAREGIVER AT BEDSIDE THROUGHOUT THE NIGHT. LET'S PT'S NEEDS KNOWN. PT REMAINED IN BED THIS EVENING. VSS. AQUACEL TO HIP REMAINS INTACT AND IN PLACE. NO ACUTE CHANGES THIS SHIFT. NOT COMBATIVE BUT VERY DROWSY. VSS.
[2019-01-27 05:21] LABS: Hematocrit 46.8 % (37.0-53.0)
[2019-01-27 05:41] LABS: Albumin, Blood 3.2 g/dL (3.4-5.0); Anion Gap 8 mmol/L (6-16); Blood Urea Nitrogen 22 mg/dL (8-24); Bun/Creatinine Ratio 19.8 (12.0-20.0); CO2, Blood 30 mmol/L (21-32); Calcium, Blood 9.4 mg/dL (8.5-10.1); Chloride, Blood 114 mmol/L (98-108); Creatinine, Blood 1.11 mg/dL (0.60-1.20); Glomerular Filtration Rate >60 (60-); Glucose, Blood 122 mg/dL (70-99); Magnesium, Blood 2.7 mg/dL (1.6-2.4); Phosphorus, Blood 3.2 mg/dL (2.5-4.9); Sodium, Blood 152 mmol/L (136-145)
--- NOTE | 2019-01-27 11:50 | NUR ---
BANDAGE CHANGE PT. LIFTED EDGES OF BANDAGE FROM RIGHT HIP INCISION SITE. SURGICAL SENT NEW ONE UP VIA TUBE. AQUACEL BANADGE WAS REPLACED.
--- NOTE | 2019-01-27 12:30 | NUR ---
PHYSICAL THERAPY PHYSICAL THERAPY ARRIVED JUST BEFORE LUNCH TO WORK WITH PATIENT. THE PATIENT WAS ABOUT TO HAVE LUNCH AND WAS COMPLAINING OF PAIN IN HIS MID BACK FOLLOWING A DRESSING CHANGE. IT WAS ALSO REQUESTED THAT ATIVAN BE GIVEN PRIOR TO PT. FOR THIS REASON PT WAS POSTPONED UNTIL AFTER LUNCH.
--- NOTE | 2019-01-27 15:51 | NUR ---
SUDIUM UPDATE LEFT MESSAGE WITH ILYA AT DR GATES OFFICE WITH RESULT OF SODIUM LAB DRAW.
--- NOTE | 2019-01-27 18:20 | NUR ---
SHIFT SUMMARY PATIENT HAS APPEARED TO BE ASLEEP MOST OF THE DAY. PHYSICAL THERPPY WAS REFUSED THIS AFTERNOON--CAREGIVER ASKED TO LET PATIENT SLEEP. THE PATIENT DID NOT BECOME AGITATED TODAY AND TOOK ALL OF HIS MEDICATIONS WITHOUT ISSUE WHOLE IN APPLESAUCE. CAREGIVER IS WITH PT. AT ALL TIMES. SHE IS ABLE TO ANSWER MOST QUESTIONS REGARDING THE PATIENT. WHEN PROVIDING CARE, IT IS HELPFUL TO ADVISE PATIENT OF ACTIONS PRIOR TO COMMITING SUCH "BALWINDER, I AM GOING TO TOUCH YOUR SIDE AND HELP YOU ROLL OVER". BRITTANY KAMINSKI AND I CHECKED THE PATIENTS SACRAL AREA HE HAS SPENT A LOT OF TIME IN BED. THERE ARE NO SIGNS OF BREAKDOWN OR REDNESS. HIS BANAGE IS CLEAN DRY AND INTACT, WELL. INCISION SITE IS ALSO CLEAN AND DRY.
[2019-01-28 05:37] LABS: Hematocrit 43.7 % (37.0-53.0); Hemoglobin 13.2 g/dL (13.5-17.5)
[2019-01-28 06:08] LABS: Magnesium, Blood 2.1 mg/dL (1.6-2.4)
[2019-01-28 06:09] LABS: Albumin, Blood 2.9 g/dL (3.4-5.0); Anion Gap 6 mmol/L (6-16); Blood Urea Nitrogen 21 mg/dL (8-24); Bun/Creatinine Ratio 24.3 (12.0-20.0); CO2, Blood 30 mmol/L (21-32); Calcium, Blood 8.7 mg/dL (8.5-10.1); Chloride, Blood 109 mmol/L (98-108); Creatinine, Blood 0.86 mg/dL (0.60-1.20); Glomerular Filtration Rate >60 (60-); Glucose, Blood 114 mg/dL (70-99); Phosphorus, Blood 3.4 mg/dL (2.5-4.9); Potassium, Blood 3.7 mmol/L (3.5-5.5); Sodium, Blood 145 mmol/L (136-145)
--- NOTE | 2019-01-28 18:04 | NUR ---
DISCHARGE NOTE PT DISCHARGE VIA STRETCHER WITH [facility] ACCOMPANIED BY EMT'S AND DIRECTOR BROADCAST. MEDICATIONS FAXED TO PHARMACY AND PT AND CARE GIVEN INFORMED TO FOLLOW UP WITH ORTHOPEDIC SURGEON AND PCP. PT AND DIRECTOR BROADCAST VERBALIZED UNDERSTANDING OF ALL FOLLOW UP INSTRUCTIONS. [facility] COMPLETED EQUIPMENT DELIVERY PRIOR TO DISCHARGE. ALL BELONGINGS SENT WITH PATIENT.
== END 2019-01-28 17:55 | disposition home or self-care (01) | DRG 469 ==
LOC: ER 07:48 → SURS 10:05 → PCU 10:05 → SURS 12:00 → PCU 01-20 09:08 → MEDS 01-23 20:35
PROVIDERS: Emergency Medicine; Family Medicine; Internal Medicine; Internal Medicine Nephrology; Orthopaedic Surgery; ADMIT Internal Medicine
PROC: 0SRS0JZ Replacement of Left Hip Joint, Femoral Surface with Synthetic Substitute, Open Approach (ICD-10-PCS; principal; 2019-01-16 08:30)
DX: S72.002A Fracture of unspecified part of neck of left femur, initial encounter for closed fracture (principal); J96.01 Acute respiratory failure with hypoxia; J18.1 Lobar pneumonia, unspecified organism; E87.1 Hypo-osmolality and hyponatremia; E87.0 Hyperosmolality and hypernatremia; E23.2 Diabetes insipidus; Z87.820 Personal history of traumatic brain injury; Z86.718 Personal history of other venous thrombosis and embolism; E78.5 Hyperlipidemia, unspecified; E03.9 Hypothyroidism, unspecified; F32.9 Major depressive disorder, single episode, unspecified; K21.9 Gastro-esophageal reflux disease without esophagitis; R73.9 Hyperglycemia, unspecified; K59.00 Constipation, unspecified; Z68.33 Body mass index [BMI] 33.0-33.9, adult; D64.9 Anemia, unspecified; E66.01 Morbid (severe) obesity due to excess calories; D69.6 Thrombocytopenia, unspecified; E86.9 Volume depletion, unspecified; N28.9 Disorder of kidney and ureter, unspecified; E88.09 Other disorders of plasma-protein metabolism, not elsewhere classified; R45.1 Restlessness and agitation; Z74.09 Other reduced mobility
CPT/HCPCS: 36415; 71045; 71046; 72170; 73502; 80048; 80053; 80069; 82803; 82947; 83735; 83880; 83935; 84295; 85014; 85018; 85025; 85027; 85610; 85730; 86850; 86900; 86901; 87081; 88305; 88311; 94640; 94760; 94762; 97110; 97116; 97163; 97530; 99285-25; A9270-GY; C1776; J0171; J0690; J0735; J1100; J1885; J1956; J2370; J2405; J2704; J2710; J2795; J3010; J7050; J7070; J7120

== ENCOUNTER → 2019-02-19 | Outpatient (CLI) | payer OTHER ==
[~2019-02-19] MED LIST changes: +ACET325 PO; +ATOR40TA PO; +Desmopressin A0.1 MG PO; +GAVILAX17 GM PO; +LEVO750 PO; +LORA1 PO; +ONDA4ODT MM; +Omega 3 1,0001 EACH PO; +Refresh Celluv1 EACH BOTHEYES
[2019-02-19 19:40] LABS: Alanine Aminotransfer (ALT/SGP 41 U/L (12-78); Albumin, Blood 3.1 g/dL (3.4-5.0); Albumin/Globulin Ratio 0.8 (0.8-1.8); Alk Phos 195 U/L (50-136); Anion Gap 6 mmol/L (6-16); Aspartate Aminotrans (AST/SGOT 24 U/L (12-37); Bilirubin, Total 0.2 mg/dL (0.1-1.0); Blood Urea Nitrogen 11 mg/dL (8-24); Bun/Creatinine Ratio 20.2 (12.0-20.0); CO2, Blood 25 mmol/L (21-32); Calcium, Blood 9.1 mg/dL (8.5-10.1); Chloride, Blood 95 mmol/L (98-108); Creatinine, Blood 0.55 mg/dL (0.60-1.20); Globulin, Blood 3.9 g/dL (2.2-4.0); Glomerular Filtration Rate >60 (60-); Glucose, Blood 96 mg/dL (70-99); Potassium, Blood 4.1 mmol/L (3.5-5.5); Sodium, Blood 126 mmol/L (136-145)
[2019-02-19 19:51] LABS: BASOPHILS ABSOLUTE AUTO 0.01 K/mm3 (0.00-0.23); BASOPHILS PERCENT AUTO 0 % (0-2); EOSINOPHILS ABSOLUTE AUTO 0.17 K/mm3 (0.00-0.68); EOSINOPHILS PERCENT AUTO 4 % (0-6); Hematocrit 45.3 % (37.0-53.0); Hemoglobin 14.7 g/dL (13.5-17.5); IMMATURE GRAN ABSOLUTE AUTO 0.02 K/mm3 (0.00-0.10); IMMATURE GRAN PERCENT AUTO 0 % (0-1); LYMPHOCYTES ABSOLUTE AUTO 1.13 K/mm3 (0.84-5.20); LYMPHOCYTES PERCENT AUTO 25 % (21-46); MONOCYTES ABSOLUTE AUTO 0.49 K/mm3 (0.16-1.47); MONOCYTES PERCENT AUTO 11 % (4-13); Mean Corpuscular HGB 28.2 pg (26.0-34.0); Mean Corpuscular HGB Conc 32.5 g/dL (31.5-36.5); Mean Corpuscular Volume 87 fL (80-100); Mean Platelet Volume 10.7 fL (9.1-12.4); NEUTROPHILS ABSOLUTE AUTO 2.64 K/mm3 (1.96-9.15); NEUTROPHILS PERCENT AUTO 59 % (41-73); Platelet Count 147 K/mm3 (150-400); RDW Coefficient Variation 15.5 % (11.7-14.2); RDW Standard Deviation 49.1 fL (35.1-46.3); Red Blood Cell Count 5.21 M/mm3 (4.30-5.90); White Blood Cell Count 4.46 K/mm3 (4.00-11.30)
== END ==
LOC: LAB SHORT 19:23 → LAB 19:23
PROVIDERS: Family Medicine
DX: R19.7 Diarrhea, unspecified (principal)
CPT/HCPCS: 80053; 85025

== ENCOUNTER 2019-02-27 22:01 | Inpatient (IN) | payer OTHER ==
[~2019-02-27] VITALS: Ht 177.8 cm; Wt 124.4 kg
[2019-02-27 22:27] LABS: BASOPHILS ABSOLUTE AUTO 0.02 K/mm3 (0.00-0.23); BASOPHILS PERCENT AUTO 0 % (0-2); EOSINOPHILS ABSOLUTE AUTO 0.36 K/mm3 (0.00-0.68); EOSINOPHILS PERCENT AUTO 4 % (0-6); Hematocrit 42.6 % (37.0-53.0); Hemoglobin 13.5 g/dL (13.5-17.5); IMMATURE GRAN ABSOLUTE AUTO 0.49 K/mm3 (0.00-0.10); IMMATURE GRAN PERCENT AUTO 6 % (0-1); LYMPHOCYTES ABSOLUTE AUTO 2.12 K/mm3 (0.84-5.20); LYMPHOCYTES PERCENT AUTO 24 % (21-46); MONOCYTES ABSOLUTE AUTO 0.59 K/mm3 (0.16-1.47); MONOCYTES PERCENT AUTO 7 % (4-13); Mean Corpuscular HGB 28.6 pg (26.0-34.0); Mean Corpuscular HGB Conc 31.7 g/dL (31.5-36.5); Mean Platelet Volume 10.2 fL (9.1-12.4); NEUTROPHILS ABSOLUTE AUTO 5.16 K/mm3 (1.96-9.15); NEUTROPHILS PERCENT AUTO 59 % (41-73); NRBC ABSOLUTE 0.02 K/mm3 (0.00-0.02); NRBC Auto 0.2 /100 WBC (0.0-0.2); Platelet Count 90 K/mm3 (150-400); RDW Coefficient Variation 15.5 % (11.7-14.2); RDW Standard Deviation 50.9 fL (35.1-46.3); Red Blood Cell Count 4.72 M/mm3 (4.30-5.90); White Blood Cell Count 8.74 K/mm3 (4.00-11.30)
[2019-02-27 22:29] LABS: Mean Corpuscular Volume 90 fL (80-100)
[2019-02-27 22:43] LABS: Alanine Aminotransfer (ALT/SGP 42 U/L (12-78); Albumin, Blood 3.3 g/dL (3.4-5.0); Albumin/Globulin Ratio 0.8 (0.8-1.8); Alk Phos 192 U/L (50-136); Anion Gap 9 mmol/L (6-16); Aspartate Aminotrans (AST/SGOT 31 U/L (12-37); Bilirubin, Total 0.3 mg/dL (0.1-1.0); Blood Urea Nitrogen 11 mg/dL (8-24); Bun/Creatinine Ratio 16.4 (12.0-20.0); CO2, Blood 27 mmol/L (21-32); Calcium, Blood 8.9 mg/dL (8.5-10.1); Chloride, Blood 95 mmol/L (98-108); Creatinine, Blood 0.67 mg/dL (0.60-1.20); Globulin, Blood 3.9 g/dL (2.2-4.0); Glomerular Filtration Rate >60 (60-); Glucose, Blood 116 mg/dL (70-99); Potassium, Blood 4.4 mmol/L (3.5-5.5); Sodium, Blood 131 mmol/L (136-145); Total Protein, Blood 7.2 g/dL (6.4-8.2)
[2019-02-27 22:45] LABS: BAND PERCENT MAN 5 % (0-8); BASOPHILS PERCENT MAN 0 % (0-2); EOSINOPHILS ABSOLUTE MAN 0.34 K/mm3 (0.00-0.68); EOSINOPHILS PERCENT MAN 4 % (0-6); LYMPHOCYTES ABSOLUTE MAN 2.18 K/mm3 (0.84-5.20); LYMPHOCYTES PERCENT MAN 25 % (21-46); METAMYELOCYTE ABSOLUTE MAN 0.08 K/mm3 (0.00-0.00); METAMYELOCYTE PERCENT MAN 1 % (0-0); MONOCYTES ABSOLUTE MAN 0.17 K/mm3 (0.16-1.47); MONOCYTES PERCENT MAN 2 % (4-13); NEUTROPHILS ABSOLUTE MAN 5.94 K/mm3 (1.96-9.15); SEG NEUTROPHILS PERCENT MAN 63 % (41-73); TOTAL CELLS COUNTED 100
[2019-02-28] MEDS ORDERED: VENL75ER PO (00:07)
--- NOTE | 2019-02-28 05:43 | NUR ---
PCU ADMIT / SHIFT SUMMARY PT BROUGHT TO PCU RM 15 FROM THE ER BY WENDY @ APPROX 0230 W/ 12/05 CAREGIVER ACCOMPANYING. PT SLID OVER FROM GURNEY TO PCU BED. PT ALERT, ORIENTED TO SELF ONLY. PT DROWSY, CAREGIVER STATES PT IS "ALWAYS SLEEPY". LUNG SOUNDS CLEAR. PT WEARING NC @ 3.5L UPON ARRIVAL, INCREASED TO 5L NC THIS SHIFT TO MAINTAIN SPO2 > 92%. BLOOD PRESSURE LOW UPON ARRIVAL, MD VOSS IN TO SEE PT WITH ORDERS FOR 500 ML NS BOLUS. PT BP IMPROVED, BUT CONTINUES TO BE LOW. NS GTT INFUSING PER ORDERS. PT CAREGIVER REPORTS PT HAVING L HIP FX POST FALL. ORTHO CONSULT CALLED IN TO ANSWERING SERVICE. PT NPO PER ORDERS. EEG TO BE DONE. CAREGIVER AT BEDSIDE. WILL CONTINUE TO MONITOR AND PROVIDE CARE UNTIL REPORT OFF TO DAY SHIFT RN.
[2019-02-28 08:11] LABS: Hematocrit 34.9 % (37.0-53.0); Hemoglobin 11.1 g/dL (13.5-17.5); Mean Corpuscular HGB 28.8 pg (26.0-34.0); Mean Corpuscular HGB Conc 31.8 g/dL (31.5-36.5); Mean Corpuscular Volume 90 fL (80-100); Mean Platelet Volume 9.8 fL (9.1-12.4); Platelet Count 92 K/mm3 (150-400); RDW Coefficient Variation 15.7 % (11.7-14.2); RDW Standard Deviation 51.7 fL (35.1-46.3); Red Blood Cell Count 3.86 M/mm3 (4.30-5.90); White Blood Cell Count 15.62 K/mm3 (4.00-11.30)
[2019-02-28 08:24] LABS: Alanine Aminotransfer (ALT/SGP 35 U/L (12-78); Albumin, Blood 2.9 g/dL (3.4-5.0); Albumin/Globulin Ratio 0.8 (0.8-1.8); Alk Phos 163 U/L (50-136); Anion Gap 2 mmol/L (6-16); Aspartate Aminotrans (AST/SGOT 23 U/L (12-37); Bilirubin, Total 0.3 mg/dL (0.1-1.0); Blood Urea Nitrogen 13 mg/dL (8-24); Bun/Creatinine Ratio 18.4 (12.0-20.0); CO2, Blood 29 mmol/L (21-32); Calcium, Blood 8.3 mg/dL (8.5-10.1); Chloride, Blood 98 mmol/L (98-108); Creatinine, Blood 0.71 mg/dL (0.60-1.20); Globulin, Blood 3.5 g/dL (2.2-4.0); Glomerular Filtration Rate >60 (60-); Glucose, Blood 103 mg/dL (70-99); Potassium, Blood 5.4 mmol/L (3.5-5.5); Sodium, Blood 129 mmol/L (136-145); Total Protein, Blood 6.4 g/dL (6.4-8.2)
--- NOTE | 2019-02-28 11:14 | NUR ---
PCU DAYSHIFT ASSUMED CARE OF PT APPROX. 0700. PT ALERT AND ORIENTED TO SELF. AFTER AWAKENING PT WAS ABLE TO ANSWER QUESTIONS BUT REMIANED NONVERBAL. PT COMMUNICATED BY HEAD NODS AND MOUTHING WORDS. AFTER A PERIOD OF TIME PT ABLE ABLE TO VERBALLY SAY NAME. EDEMA NOTED BLE. LEFT UPPER LEFT MUSCLES SLIGHTLY MORE FIRM THAN RIGHT. PT DENIES ANY PAIN AT THIS TIME, WHILE LAYING STILL. PT HAS DRIED BLOOD IN MOUTH AND ON LIPS. PERFORMED ORAL CARE. LEFT SIDE OF PT MOUTH SORE AND PT GRIMACED WITH THIS. CAREGIVER ROPORTS AT BASELINE PT IS TALKATIVE AND NOT NORMALLY THIS CALM. BED IN LOW POSITION, CALL LIGHT IN REACH. PT DENIES ANY NEEDS. CAREGIVER REMAINS AT BEDSIDE AT THIS TIME.
--- NOTE | 2019-02-28 11:21 | NUR ---
NOTE SPOKE TO PT PARENTS, WHO REPORTS THAT PT BLOOD PRESSURE HAS BEEN RUNNING LOW FOR A LITTLE OVER A WEEK. THIS WAS WHEN PT HAD OUTPATIENT DOCTOR APPTOINTMENT. THEY REPORT SBP HAS BEEN IN 90'S. PHYSICIAN IS AWARE OF CURRENLT BLOOD PRESSURES. NO CHANGED IN ORDERS.
--- NOTE | 2019-02-28 19:43 | NUR ---
SHIFT SUMMARY PT PLEASANT AND COOPERATIVE. THE DAY PROGRESSED PT BEGAN TO VERBALIZE NEEDS AND WANTS MORE. HE BEGAN TO ANSWER QUESTIONS BY VERBALIZING WORDS. ASSESSMENT FINDINGS REMAIN UNCAHGNED. VITAL SIGNS STABLE. BLOOD PRESSURE CONTINUE TO RUN SLIGHTLY LOW, BUT MAP IN 60'S AND PHYSICIAN AWARE OF THIS. PT REPROTS BEING COMFORTABLE UNTI BEING MOVED. PAIN IS IN LEFT LEG/HIP WHEN HE HAS PAIN. PT ABLE TO SIT UP AND HAVE DINNER THIS EVENING. CAREGIVER AT [facility] TO ASSIST WITH THIS. PT TOLERATED WELL. PT OFF TO IMAGING THIS EVENING. GAVE PT DOSE OF PAIN MEDICAITON PER EMAR AT THIS TIME. PT REPORTED INCREASED PAIN WITH SLIDING OVER FROM BED TO GURNEY. CAREGIVER REMAINS AT BEDSIDE. PT PARENTS IN TO SEE PT TODAY. THEY REPORT TO CALL THEM WITH ANY QUESTIONS OR CONCERNS AT ALL AND THEY WILL TRY TO HAVE ANSWERS. PT INCONTINENT T/O SHIFT. BED IN LOW POSITION, CALL LIGHT IN REACH AND PT DENIES ANY NEEDS AT THIS TIME. WILL CONTINUE TO MONITOR UNTIL HANDOFF TO NIGHTSHIFT RN.
[2019-03-01 03:54] LABS: BASOPHILS ABSOLUTE AUTO 0.01 K/mm3 (0.00-0.23); BASOPHILS PERCENT AUTO 0 % (0-2); EOSINOPHILS ABSOLUTE AUTO 0.03 K/mm3 (0.00-0.68); EOSINOPHILS PERCENT AUTO 0 % (0-6); Hematocrit 30.2 % (37.0-53.0); Hemoglobin 9.7 g/dL (13.5-17.5); IMMATURE GRAN ABSOLUTE AUTO 0.06 K/mm3 (0.00-0.10); IMMATURE GRAN PERCENT AUTO 1 % (0-1); LYMPHOCYTES ABSOLUTE AUTO 1.38 K/mm3 (0.84-5.20); LYMPHOCYTES PERCENT AUTO 14 % (21-46); MONOCYTES ABSOLUTE AUTO 0.71 K/mm3 (0.16-1.47); MONOCYTES PERCENT AUTO 7 % (4-13); Mean Corpuscular HGB 28.3 pg (26.0-34.0); Mean Corpuscular HGB Conc 32.1 g/dL (31.5-36.5); Mean Corpuscular Volume 88 fL (80-100); Mean Platelet Volume 10.1 fL (9.1-12.4); NEUTROPHILS ABSOLUTE AUTO 8.06 K/mm3 (1.96-9.15); NEUTROPHILS PERCENT AUTO 79 % (41-73); Platelet Count 85 K/mm3 (150-400); RDW Coefficient Variation 15.9 % (11.7-14.2); Red Blood Cell Count 3.43 M/mm3 (4.30-5.90); White Blood Cell Count 10.25 K/mm3 (4.00-11.30)
[2019-03-01 04:12] LABS: Anion Gap 5 mmol/L (6-16); Blood Urea Nitrogen 13 mg/dL (8-24); Bun/Creatinine Ratio 18.5 (12.0-20.0); CO2, Blood 30 mmol/L (21-32); Calcium, Blood 8.5 mg/dL (8.5-10.1); Chloride, Blood 97 mmol/L (98-108); Glomerular Filtration Rate >60 (60-); Glucose, Blood 86 mg/dL (70-99); Potassium, Blood 4.7 mmol/L (3.5-5.5); Sodium, Blood 132 mmol/L (136-145)
--- NOTE | 2019-03-01 04:52 | NUR ---
SHIFT SUMMARY PT ALERT, ORIENTED TO SELF AND CAREGIVER AT BEDSIDE. PT NOT ANSWERING NURSE Q'S THIS FOIL WRAPPER, WHEN CAREGIVER ASKED PT IF HE IS HEARING AND UNDERSTANDING PT SAID "YES" THEN LOOKED AWAY W/ NO FURTHER COMMUNICATION. PT WITHDRAWN. PT PAINFUL W/ REPOSITIONING, SAYS "OW" W/ CAREFUL 2 STAFF ASSIST REPOSITIONING, OTHERWISE PT CALM AND QUIET IN BED W/ NO C/O PAIN AT REST. PT SLEEPING MAJORITY OF SHIFT. VSS. LUNG SOUNDS CLEAR, DIM IN BASES. SPO2 > 92% ON 4.5L NC. MONITOR SHOW NSR. PT HAS BEEN NPO AFTER MIDNIGHT FOR POSSIBLE PROCEDURE TODAY. WILL CONTINUE TO MONITOR AND PROVIDE CARE UNTIL REPORT OFF TO DAY SHIFT RN.
--- NOTE | 2019-03-01 18:50 | NUR ---
PT HAD A GOOD DAY TODAY, HE WAS NPO AT BEGINNING OF SHIFT FOR PROCEDURE, HOWEVER IT IS SCHEDULED FOR FRIDAY, 03/02 AT 0730. PT GIVEN LUNCH AND DINNER AND WILL BE NPO AT MIDNIGHT FOR PROCEDURE TOMORROW. PT CAREGIVER NAN AT BEDSIDE THROUGHOUT THE SHIFT, MOTHER AND FATHER ALSO AT BEDSIDE AND LEFT AFTER SURGERY TIME CHANGED. PT CONTINUES ON 3 LPM NC AND O2 SAT >92% THROUGHOUT SHIFT. PT TURNED AND CHANGED THROUGHOUT THE SHIFT, HE IS VERY PAINFUL WITH TURNS, PAIN MEDICATION GIVEN BEFORE ACTIVITY WORKS BEST. EEG DONE TODAY. DR. PATRICK AT BEDSIDE THIS EVENING TO OBTAIN CONSENT FOR PROCEDURE IN AM. DID CONSENT OVER TELEPHONE, PROCEDURE AND RISKS EXPLAINED TO PT MOTHER AND SHE EXPRESSED TO THIS RN UNDERSTANDING AND CONSENT TO SIGN WITH TELEPHONE CONSENT FOR PROCEDURE TO BE DONE 03/02 AT 0730. SIGNED DOCUMENT AND PLACED IN FOLDER. WILL CONTINUE TO MONITOR AND GIVE REPORT TO NOC RN.
[2019-03-02 04:07] LABS: Hematocrit 27.2 % (37.0-53.0); Hemoglobin 8.8 g/dL (13.5-17.5); Mean Corpuscular HGB Conc 32.4 g/dL (31.5-36.5); Mean Corpuscular Volume 90 fL (80-100); Mean Platelet Volume 9.6 fL (9.1-12.4); Platelet Count 109 K/mm3 (150-400); RDW Coefficient Variation 15.9 % (11.7-14.2); RDW Standard Deviation 51.8 fL (35.1-46.3); Red Blood Cell Count 3.03 M/mm3 (4.30-5.90); White Blood Cell Count 10.81 K/mm3 (4.00-11.30)
[2019-03-02 04:23] LABS: Anion Gap 7 mmol/L (6-16); Blood Urea Nitrogen 13 mg/dL (8-24); CO2, Blood 29 mmol/L (21-32); Calcium, Blood 8.5 mg/dL (8.5-10.1); Chloride, Blood 97 mmol/L (98-108); Creatinine, Blood 0.77 mg/dL (0.60-1.20); Glomerular Filtration Rate >60 (60-); Glucose, Blood 87 mg/dL (70-99); Potassium, Blood 4.4 mmol/L (3.5-5.5); Sodium, Blood 133 mmol/L (136-145)
[2019-03-02 04:28] LABS: Percent Saturation 18.1 % (20.0-50.0)
--- NOTE | 2019-03-02 05:50 | NUR ---
SHIFT SUMMARY / READY FOR OR THIS AM. 18 GA IV AND PAIN ISSUES COVERED W/ FENTENYL APPROX Q 5 HR. W/ GOOD SLEEP UNTIL TURNED Q 2 HR. BLE EDEMA. EDEMA AT LT HIP AND STERI STRIPS IN PLACE. TRACE REDNESS AT AT INCISION SITE. ASSISTS IN TURN AND ENC TO DEEP BREATHE AND VERY GOOD EFFORT. PAIN IN LT HIP W/ TURNING AND SUBSIDES QUICKLY WHEN LEFT UNDISTURBED , BUT PAIN MEDS GIVEN PRE TURN WHEN POSSIBLE. SR FIRST DEGREE. GLUCOSE 87 AT 0330.
--- NOTE | 2019-03-02 06:53 | NUR ---
History, Chart, Medications and Allergies reviewed before start of procedure. Lungs clear T/O to Auscultation. NPO Status.
--- NOTE | 2019-03-02 07:00 | NUR ---
PT OUT OF ROOM FOR SURGERY. CAREGIVER IN ROOM.
[2019-03-02 12:05] LABS: Hematocrit 27.8 % (37.0-53.0)
--- NOTE | 2019-03-02 14:37 | NUR ---
This student nurse obtained permission from patient's caregiver to access patient information.
--- NOTE | 2019-03-02 16:37 | NUR ---
PATIENT ARRIVED BACK TO UNIT AT 1250, HE IS VERY LETHARGIC AND SLEEPY. WHEN SPEAKING WITH PT AND DOING VITALS, HE DOES NOT WAKE, WILL HOLD PO MEDS UNTIL PATIENT IS MORE ALERT AND ABLE TO PARTICIPATE IN HIS CARE. CAREGIVER NAN AT BEDSIDE. INSERTED OCASIO CATH PER DR. VALENCIA. PT TOLERATED WELL, IMMEDIATE RETURN OF CLEAR YELLOW URINE. WILL CONTINUE TO MONITOR AND FOLLOW ORDERS FOR THIS PATIENT.
--- NOTE | 2019-03-02 18:36 | NUR ---
PT HAS BEEN LETHARGIC DURING THE AFTERNOON, HOWEVER WHEN MOVING PATIENT HE AWOKE AND SEEMED TO OPEN HIS EYES TO RESPOND TO QUESTIONS. ASKED IF HE IS HUNGRY FOR DINNER, HE SAID YES. PT HAVING HARD TIME CHEWING WITH HIS TONGUE BRUISED. WILL GET SOME SOFT FOODS ORDERED.
[2019-03-03 08:24] LABS: Hematocrit 23.5 % (37.0-53.0); Hemoglobin 7.4 g/dL (13.5-17.5)
[2019-03-03] MEDS ORDERED: ATOR40TA PO (10:53)
--- NOTE | 2019-03-03 11:09 | NUR ---
NOTIFIED OF MEDS REC; NOT ON EFFEXOR, SCHEDULED ATIVAN 0.5 MG IN AM AND ANOTHER DOSE 0.5 MG PRN, OMEGA 3 1000 BID, LIPITOR 40 MG PM AND DDVAP SHOULD BE BID NOT TID. STS WILL CHANGE.
--- NOTE | 2019-03-03 15:10 | NUR ---
UA AND TOX ORDERED ON 02/28. ASKED VALERIO IF WANTED. OK TO CANCEL
--- NOTE | 2019-03-03 17:51 | NUR ---
MARIFER GANT TAKEN OFF FOR ACID CONDITIONER. SCD'S LEFT ON. PREVENA WOUND VAC IN PLACE WITH GOOD SUCTION. SWELLING LEFT LOWER AND UPPER EXTREMITY. MEDS FOR CONSTIPATION GIVEN. TBI. HIPS FLOATED. CAREGIVER STAYS 12/05. COOPERATIVE.BERTHA.
--- NOTE | 2019-03-03 18:39 | NUR ---
PER WILL REPEAT H&H TOMORROW. AWARE 7.4 AND 23.5. NO SIGNS OF BLEEDING. DRESSING TO LEFT HIP DRY WITH GOOD SUCTION.
[2019-03-04 04:19] LABS: Hematocrit 20.1 % (37.0-53.0); Hemoglobin 6.4 g/dL (13.5-17.5); Mean Corpuscular HGB 29.9 pg (26.0-34.0); Mean Corpuscular HGB Conc 31.8 g/dL (31.5-36.5); Mean Platelet Volume 9.1 fL (9.1-12.4); NRBC ABSOLUTE 0.05 K/mm3 (0.00-0.02); NRBC Auto 0.3 /100 WBC (0.0-0.2); Platelet Count 205 K/mm3 (150-400); RDW Coefficient Variation 16.2 % (11.7-14.2); RDW Standard Deviation 54.5 fL (35.1-46.3); Red Blood Cell Count 2.14 M/mm3 (4.30-5.90); White Blood Cell Count 15.16 K/mm3 (4.00-11.30)
[2019-03-04 04:21] LABS: Mean Corpuscular Volume 94 fL (80-100)
[2019-03-04 04:37] LABS: Anion Gap 4 mmol/L (6-16); Blood Urea Nitrogen 23 mg/dL (8-24); Bun/Creatinine Ratio 30.9 (12.0-20.0); CO2, Blood 32 mmol/L (21-32); Chloride, Blood 101 mmol/L (98-108); Creatinine, Blood 0.75 mg/dL (0.60-1.20); Glomerular Filtration Rate >60 (60-); Glucose, Blood 101 mg/dL (70-99); Potassium, Blood 4.6 mmol/L (3.5-5.5); Sodium, Blood 137 mmol/L (136-145)
--- NOTE | 2019-03-04 06:17 | NUR ---
SHIFT SUMMARY PT A&O TO SELF AND CAREGIVER AT BEDSIDE, FOLLOWING SIMPLE INSTRUCTIONS. PT VSS. CALL TO MD VOSS THIS AM FOR HGB 6.4 W/ ORDERS FOR 1 UNIT PRBC'S. ORDER PLACED, AWAITING SLIP FROM BLOOD BANK. WOUND VAC TO L HIP SURGICAL SITE INTACT & WNL. PT LUNG SOUNDS CLEAR, DIM IN BASES. SPO2 > 92% ON 1.5L NC. MONITOR SHOWS NSR. PT INCONTINENT OF URINE W/ OCASIO CATH IN PLACE. OCASIO CATH PATENT AND DRAINING CLEAR YELLOW URINE. WILL CONTINUE TO MONITOR AND PROVIDE CARE UNTIL REPORT OFF TO DAY SHIFT RN.
--- NOTE | 2019-03-04 08:00 | NUR ---
pt laying in bed with eyes closed, wakes for family, ate all of his breakfast, vs stable, will start tranfusion on one unit. care and mom in room. pt lungs are clear dim in bases, is on 1.5 liters 02 via n/c, resp even and unlabored, no cough noted, hrr, tele in place running sr per monitor, see strip, 3+edema noted to b/l le, hands are puffy as well, iv x3 sites are clear and patent, btx4 hypoactive, hendrickson cath draining daniel urine, skin has wound vac to left hip, site is clear. moves upper ext well. call light in reach.
--- NOTE | 2019-03-04 13:30 | NUR ---
pt resting in bed, transfusion complete tolerated well. no acute changes, ot worked with him. call light in reach, caregiver in room.
--- NOTE | 2019-03-04 17:31 | NUR ---
DR SMYTH STATES OKAY GIVE XARELTO IF WOUND VAC NOT BLEEDING EXCESSIVELY.NO BLOOD IN VAC, GIVING MED.
--- NOTE | 2019-03-04 19:12 | NUR ---
PT SKIVER COUNTER, CLIFTON, IN ROOM. SHE ASSISTS IN FEEDING AND TURNING. WHEN GAVE PT MEDS, HE SWALLOWED PRETTY WELL SITTING UP IN BED. DID TALK WITH ME SOME. A/O AND REASONABLE ANSWERS. PLEASANT. NO OTHER CONCENS AT THIS TIME. BED IN LOW POSITION, CALL LITE IN REACH, SKIVER COUNTER AT BEDSIDE.
--- NOTE | 2019-03-05 06:09 | NUR ---
SHIFT SUMMARY PT ALERT, ORIENTED TO SELF. LUNG SOUNDS CLEAR, DIM IN BASES. SPO2 88% ON RA WHILE SLEEPING, 1L NC RE-APPLIED W/ RETURN TO SPO2 > 90%. MONITOR SHOWS NSR. OCASIO CATH PATENT AND DRAINING FREDI COLORED URINE. WOUND VAC IN PLACE TO L HIP SURGICAL SITE. PRODUCTION SKI REPAIRER AT BEDSIDE T/O SHIFT. PT PAINFUL W/ REPOSITIONING, OTHERWISE NO C/O PAIN. PT IN BED W/ CALL LIGHT IN REACH. WILL CONTINUE TO MONITOR AND PROVIDE CARE UNTIL REPORT OFF TO DAY SHIFT RN.
[2019-03-05 08:26] LABS: Hemoglobin 7.1 g/dL (13.5-17.5)
--- NOTE | 2019-03-05 11:06 | NUR ---
PT PLEASANT A/O TO SELF AND CAREGIVERS. SOME GARBLED ANSWERS, SOME SOME MORE CLEAR. 24 HR TRAFFIC ENUMERATOR AT SIDE. OCCATIONALLY HELPS WITH CARE, TURNING, FEEDING. H/R REG, NO MURMER NOTED. PER TELE: NSR AT 91. LUNGS CLEAR, DIM BASES. ON R/A. RESP SHALLOW EASY. BT X4 LAST BM NOT SURE. DID GIVE MOM AND COLACE. GOOD BT. VOIDS OCASIO CATH. DRAINING CLEAR YELLOW FLUID. WOUND VAC, PORTABLE ATTACHED TO RT HIP. SUCTION INTACT. NO DRAINAGE NOTED IN EITHER TUBE OR PUMP. LIGHTS ON, OPPERATIONL, AND PLUGGEED TO ELECT. NO OTHER CONCERNS AT THIS TIME.
--- NOTE | 2019-03-05 11:11 | NUR ---
OCASIO CATH REMOVED BY AIDE. TURNED AND PILLOWS PLACED ON RT SIDE FOR COMFORT. PT C/O NUMBNESS IN ARMS. ALMOST NO FEELING. REMOVED IV IN RT HAND, PT STATES QUITE NOTICABLE. ABLE TO FEEL TAPE REMOVAL WELL. REMOVED IV IN LEFT AT. PT STATE QUITE NOTICABLE THERE ALSO. ABLE TO FEEL TAPE REMOVAL QUITE WELL. STATES IS NOT NUMB, GOOD FEELING. NO OTHER CONCERNS AT THIS TIME
[2019-03-05] MEDS ORDERED: Keppra750 MG PO (12:17)
[2019-03-05] MEDS ORDERED: Systane Nightt3.5 GM BOTHEYES (12:21)
--- NOTE | 2019-03-05 16:18 | NUR ---
PT OUT DOOR WITH TRANPORT. IV PULLED AND DISCHARGE DONE BY CAN INSPECTOR AND STUDENT. OUT AT 1610
== END 2019-03-05 16:17 | disposition home health service (06) | DRG 481 ==
LOC: ER 22:01 → PCU 02-28 00:45
PROVIDERS: Anesthesiology; Emergency Medicine; Internal Medicine; Orthopaedic Surgery; ADMIT Internal Medicine
PROC: 30233N1 Transfusion of Nonautologous Red Blood Cells into Peripheral Vein, Percutaneous Approach (ICD-10-PCS; 2019-03-02)
PROC: 0QS704Z Reposition Left Upper Femur with Internal Fixation Device, Open Approach (ICD-10-PCS; principal; 2019-03-02 07:30)
DX: S72.002A Fracture of unspecified part of neck of left femur, initial encounter for closed fracture (principal); M97.02XA Periprosthetic fracture around internal prosthetic left hip joint, initial encounter; E23.2 Diabetes insipidus; W19.XXXA Unspecified fall, initial encounter; Z91.81 History of falling; Z87.820 Personal history of traumatic brain injury; E66.01 Morbid (severe) obesity due to excess calories; Z87.891 Personal history of nicotine dependence; R56.9 Unspecified convulsions; D64.9 Anemia, unspecified; G47.33 Obstructive sleep apnea (adult) (pediatric); Z68.37 Body mass index [BMI] 37.0-37.9, adult; Z86.718 Personal history of other venous thrombosis and embolism; F32.9 Major depressive disorder, single episode, unspecified; E03.9 Hypothyroidism, unspecified; E78.5 Hyperlipidemia, unspecified; K21.9 Gastro-esophageal reflux disease without esophagitis; Z86.73 Personal history of transient ischemic attack (TIA), and cerebral infarction without residual deficits; I95.2 Hypotension due to drugs; R09.02 Hypoxemia
CPT/HCPCS: 36415; 36430; 51702; 70450; 71045; 72170; 73502; 73552; 73590; 73630; 73700; 80048; 80053; 82728; 82947; 83540; 83550; 85014; 85018; 85025; 85027; 86850; 86900; 86901; 86923; 93005; 93010; 95819; 96365; 96375; 97110; 97162; 97530; 99285-25; C1776; J0171; J0690; J1100; J1170; J1885; J1953; J2370; J2405; J2704; J2795; J3010; J7030; J7040; J7120; P9016

== ENCOUNTER 2019-04-07 15:21 | Emergency (ER) | payer OTHER ==
[~2019-04-07] VITALS: Ht 185.4 cm; Wt 104.3 kg
[~2019-04-07 15:21] MED LIST changes: +GENTEAL TEARS S10 GM BOTHEYES; +Keppra750 MG PO; -LORA1 PO; -Refresh Celluv1 EACH BOTHEYES; +[UNRECOGNIZED DRUG - OTHER] BOTHEYES
[2019-04-07 15:49] LABS: BASOPHILS ABSOLUTE AUTO 0.01 K/mm3 (0.00-0.23); BASOPHILS PERCENT AUTO 0 % (0-2); EOSINOPHILS ABSOLUTE AUTO 0.31 K/mm3 (0.00-0.68); EOSINOPHILS PERCENT AUTO 4 % (0-6); Hematocrit 39.3 % (37.0-53.0); IMMATURE GRAN ABSOLUTE AUTO 0.02 K/mm3 (0.00-0.10); IMMATURE GRAN PERCENT AUTO 0 % (0-1); LYMPHOCYTES ABSOLUTE AUTO 1.19 K/mm3 (0.84-5.20); LYMPHOCYTES PERCENT AUTO 14 % (21-46); MONOCYTES ABSOLUTE AUTO 0.75 K/mm3 (0.16-1.47); MONOCYTES PERCENT AUTO 9 % (4-13); Mean Corpuscular HGB 26.7 pg (26.0-34.0); Mean Corpuscular HGB Conc 30.5 g/dL (31.5-36.5); Mean Corpuscular Volume 87 fL (80-100); Mean Platelet Volume 10.9 fL (9.1-12.4); NEUTROPHILS ABSOLUTE AUTO 6.47 K/mm3 (1.96-9.15); NEUTROPHILS PERCENT AUTO 74 % (41-73); Platelet Count 190 K/mm3 (150-400); RDW Coefficient Variation 16.4 % (11.7-14.2); RDW Standard Deviation 52.6 fL (35.1-46.3); White Blood Cell Count 8.75 K/mm3 (4.00-11.30)
[2019-04-07 17:13] LABS: Alanine Aminotransfer (ALT/SGP 28 U/L (12-78); Albumin, Blood 3.3 g/dL (3.4-5.0); Albumin/Globulin Ratio 0.8 (0.8-1.8); Alk Phos 182 U/L (50-136); Anion Gap 7 mmol/L (6-16); Aspartate Aminotrans (AST/SGOT 21 U/L (12-37); Bilirubin, Total 0.4 mg/dL (0.1-1.0); Blood Urea Nitrogen 7 mg/dL (8-24); Bun/Creatinine Ratio 11.2 (12.0-20.0); CO2, Blood 29 mmol/L (21-32); Calcium, Blood 9.2 mg/dL (8.5-10.1); Chloride, Blood 97 mmol/L (98-108); Creatinine, Blood 0.63 mg/dL (0.60-1.20); Glomerular Filtration Rate >60 (60-); Glucose, Blood 93 mg/dL (70-99); Sodium, Blood 133 mmol/L (136-145); Total Protein, Blood 7.3 g/dL (6.4-8.2)
[2019-04-07] MEDS ORDERED: Ddavp0.1 MG PO (18:30)
[2019-04-07] MEDS ORDERED: LORA1 PO (18:36)
[2019-04-07] MEDS ORDERED: Anucort-Hc25 MG PR (18:43)
[2019-04-07] MEDS ORDERED: Fluocinonide15 GM TOP (18:44)
[2019-04-07] MEDS ORDERED: ONDA4ODT MM (18:53)
== END 2019-04-07 19:19 | disposition home or self-care (01) ==
LOC: ER 15:21
PROVIDERS: Emergency Medicine
DX: R11.2 Nausea with vomiting, unspecified (principal); F32.9 Major depressive disorder, single episode, unspecified; E03.9 Hypothyroidism, unspecified; E78.5 Hyperlipidemia, unspecified; G40.909 Epilepsy, unspecified, not intractable, without status epilepticus; R73.03 Prediabetes; E66.01 Morbid (severe) obesity due to excess calories; Z86.718 Personal history of other venous thrombosis and embolism; Z87.820 Personal history of traumatic brain injury
CPT/HCPCS: 36415; 71045; 80053; 82010; 85025; 96361; 96374; 99284-25; J2405; J7030

== ENCOUNTER → 2020-09-19 | Outpatient (CLI) | payer OTHER ==
[~2020-09-19] MED LIST changes: +Anucort-Hc25 MG PR; +Fluocinonide15 GM TOP; +LORA1 PO
[2020-09-19 13:52] LABS: Anion Gap 6 mmol/L (6-16); Blood Urea Nitrogen 12 mg/dL (8-24); Bun/Creatinine Ratio 15.2 (12.0-20.0); CO2, Blood 29 mmol/L (21-32); Calcium, Blood 9.3 mg/dL (8.5-10.1); Chloride, Blood 110 mmol/L (98-108); Creatinine, Blood 0.79 mg/dL (0.60-1.20); Glomerular Filtration Rate >60 (60-); Glucose, Blood 152 mg/dL (70-99); Potassium, Blood 3.8 mmol/L (3.5-5.5); Sodium, Blood 145 mmol/L (136-145)
== END | disposition home or self-care (01) ==
LOC: LAB SHORT 10:20 → LAB UCHC 10:20
PROVIDERS: Family Medicine
DX: E23.2 Diabetes insipidus (principal)
CPT/HCPCS: 80048

== ENCOUNTER → 2021-02-26 | Outpatient (CLI) | payer OTHER ==
[2021-02-27 15:33] LABS: Source, Urine Clean Catch
[2021-02-27 17:15] LABS: Calcium Oxalate Crystals Many /hpf
[2021-02-27 17:16] LABS: Bacteria Few /hpf; Mucus Heavy (0-Heavy); Red Blood Cells, Urine TNTC /hpf (0-2); Renal Epithelial Rare /hpf (0-Rare); Squamous Epithelial Cells Rare /hpf (Few)
== END ==
LOC: PLD 16:00 → LAB SHORT 16:00
PROVIDERS: Family Medicine
DX: R30.9 Painful micturition, unspecified (principal)
CPT/HCPCS: 81015; 87077; 87086; 87186

== ENCOUNTER → 2021-04-13 | Outpatient (CLI) | payer OTHER ==
[2021-04-13 15:50] LABS: Source, Urine Clean Catch
[2021-04-13 17:08] LABS: Appearance, Urine Clear (Clear); Bilirubin, Urine Neg (Neg); Blood, Urine 4+ (Neg); Color, Urine Yellow (P-Yellow); Glucose Qualitative, Urine Neg (Neg); Ketones, Urine Neg (Neg); Leukocyte Esterase, Urine 1+ (Neg); Nitrite, Urine Neg (Neg); Protein, Urine 2+ (Neg); Urobilinogen, Urine NORM (Normal)
[2021-04-13 17:15] LABS: Red Blood Cells, Urine 25-50 /hpf (0-2); Squamous Epithelial Cells Few /hpf (Few)
[2021-04-13 17:16] LABS: Bacteria Few /hpf; Calcium Oxalate Crystals Mod /hpf
== END | disposition home or self-care (01) ==
LOC: LAB UCHC 15:30 → LAB SHORT 15:30
PROVIDERS: Family Medicine
DX: R30.9 Painful micturition, unspecified (principal)
CPT/HCPCS: 81001; 87086

== ENCOUNTER → 2021-10-11 | Outpatient (CLI) | payer OTHER | END | disposition home or self-care (01) | LOC: LAB SHORT 11:00 | DX: R31.9 Hematuria, unspecified (principal) | CPT/HCPCS: 87077; 87086; 87186 ==

== ENCOUNTER → 2021-11-12 | Outpatient (CLI) | payer OTHER | END | disposition home or self-care (01) | LOC: LAB SHORT 11:15 | DX: R31.9 Hematuria, unspecified (principal) | CPT/HCPCS: 87086 ==